=== PATIENT | male | born 1955 | race Caucasian/White ===

== ENCOUNTER → 2019-07-06 07:07 | Outpatient (CLI) | payer BC, SELFPAY ==
[2019-07-06 10:05] LABS: Alanine Aminotransferase 26 U/L (12-78); Albumin Level 3.9 gm/dL (3.4-5.0); Albumin/Globulin Ratio 1.3 (1.1-1.8); Alkaline Phosphatase 87 U/L (46-116); Aspartate Amino Transferase 15 U/L (15-37); Bilirubin,Total 0.7 mg/dL (0.2-1.0); Blood Urea Nitrogen 20 mg/dL (7-18); Calcium 8.4 mg/dL (8.5-10.1); Carbon Dioxide 29 mmol/L (21.0-32.0); Chloride 103 mmol/L (98-107); Chol/HDL Ratio 3.7 (1-3.5); Cholesterol 156 mg/dL (140-200); Creatinine,Serum 1.07 mg/dL (0.70-1.30); Estimated Glomerular Filt Rate 69 ml/min (>60); GFR (African American) 84 ML/MIN (>60); Globulin 3.1 gm/dl (1.3-3.2); Glucose 96 mg/dL (74-106); HDL Cholesterol 42 mg/dL (27-67); LDL Cholesterol 89 mg/dL (0-130); Prostate Specific Ag Screen 1.1 ng/mL (0.0-4.0); Sodium 141 mmol/L (136-145); Triglycerides 123 mg/dL (30-200); VLDL Cholesterol 25 mg/dL (0-40)
[2019-07-07 17:12] LABS: Vitamin D 25 Hydroxy 64.8 ng/mL (30.0-100.0)
== END ==
PROVIDERS: Visit Provider Family Medicine
DX: Z00.00 Encounter for general adult medical examination without abnormal findings (principal); Z12.5 Encounter for screening for malignant neoplasm of prostate; E55.9 Vitamin D deficiency, unspecified
CPT/HCPCS: 36415; 80053; 80061; 82652; G0103

== ENCOUNTER → 2020-04-09 08:06 | Outpatient (CLI) | payer BC, SELFPAY ==
[2020-04-09 09:44] LABS: Coronavirus 19 IgG Antibody Negative (Negative); Coronavirus 19 IgM Antibody Negative (Negative)
== END ==
PROVIDERS: Visit Provider Surgery
DX: Z01.818 Encounter for other preprocedural examination (principal)
CPT/HCPCS: 36415; 86328

== ENCOUNTER 2020-04-10 06:27 | Day surgery (SDC) | payer BC, SELFPAY ==
[2020-04-06 10:30] VITALS: BMI 29.0
[2020-04-10 06:44] VITALS: BP 130/77; PULSE 71; RESP 20; TEMP 37; O2SAT 95
--- NOTE | 2020-04-10 07:21 | P.PN_ITS ---
[facility] Anesthesia Checklist - Patient Identification Patient Identification: Arm Band, Verbal (Name & ) - Structural Data Admitted From: Home Planned Operative Procedure/s: Colonoscopy Consent for Planned Operative Procedure(s) Verified: Yes Verified Documents: Surgical Consent, History and Physical - NPO Status Verified Time NPO: 00:00 - Chart Verification Results Verified: None - Additional verifications Anesthesia Reactions: No - Airway Assessment C-Spine Mobility Assessed: Yes TMJ Mobility Assessed: Yes Dentition: Good Dentition (crowns) - Neurological Assessment Level of Consciousness: Awake, Alert, Appropriate, Follows Commands Hx Seizures: No Numbness or tingling in extremities: No - Anesthesia Plan Anesthesia Risk discussed: Yes Anesthesia Plan: Verified ASA Class: I Anesthesia Type: [facility] History I have reviewed the patient's past medical history: Yes Medical History: Denies:: Cancer, Diabetes Mellitus Type 1, Diabetes Mellitus Type 2, Internal Pacemaker, MRSA, Seizures *Have you ever received a pneumonia vaccine?: No *Have you received a flu vaccine this season?: Yes Anesthesia experience/problems:: None Other Surgeries: Yes: Colonoscopy. No: Pacemaker Amputation: No Fractures: No - *Social History Last grade of school completed: Some college Smoking Status: Never smoker Alcohol Intake: current Alcohol Intake Frequency:: a few times a month Substance Use Type: denies use *Occupational Status:: employed Housing: house Household Members: significant other *Travel in the last 8 weeks: None Family Hx:: No significant family history
[2020-04-10 07:27] VITALS: O2SAT 95
[2020-04-10 08:10] VITALS: BP 89/59; PULSE 69; RESP 16; TEMP 36.3; O2SAT 93
--- NOTE | 2020-04-10 08:11 | P.PCN_ITS ---
- Procedure: Date: 04/10/20 Procedure Performed:: Total colonoscopy to terminal ileum with polypectomy by snare and biopsy forceps Indications:: Patient is a 65-year-old male referred for follow-up screening colonoscopy. He is normally under the care of Dr. Cristopher Engel. He did have a colonoscopy about 20 years ago for rectal bleeding and was found to have some hemorrhoids. I performed colonoscopy on him in December 2009 at which time he had some early diverticulosis and minimal internal hemorrhoids. He does take fiber supplementation. Cologuard was suggested as a possibility for screening . He has no appreciable symptoms. Performing Provider:: Severiano Leiva MD Referring Provider:: Cristopher Engel MD Sedation:: Propofol Procedure:: Patient was taken to endoscopy procedure room. He was positioned in a lateral decubitus position. Adequate intravenous sedation was achieved with anesthesia titration of propofol. Digital examination was performed which was unremarka ble. Variable stiffness Olympus colonoscope was inserted via the anus and advanced to the cecum. Appendiceal orifice and ileocecal valve were clearly identified. Colonoscope was advanced a short distance into the terminal ileum which appeared grossly normal. Colonoscope was slowly withdrawn through the colon with careful surveillance. Small adenomatous polyps were encountered in the cecum in the periappendiceal location, transverse colon proximally, and descending colon. These were removed with cold cutting snare. Possible early polyp was encountered in the descending colon and removed with cold biopsy forceps and sent as descending polyp #2. There were moderate sigmoid diverticuli. Retroflexion within the rectum revealed no evidence of any pathologic internal hemorrhoids. Colonoscope was withdrawn. Findings:: Adenomatous polyps x3 Possible early descending colon polyp Sigmoid diverticulosis Recommendations:: Likely repeat colonoscopy 3 to 5 years pending the final pathology given the adenomatous polyps Complications:: None Estimated blood obtained (mL): 2
[2020-04-10 08:20] VITALS: BP 100/66; PULSE 68; RESP 16; TEMP 36.3; O2SAT 94
[2020-04-10 08:30] VITALS: BP 116/78; PULSE 63; RESP 18; TEMP 36.3; O2SAT 95
[2020-04-10 08:49] VITALS: BP 126/83; PULSE 62; RESP 18; TEMP 36.3; O2SAT 96
== END 2020-04-10 08:49 | disposition home or self-care (01) ==
LOC: OUTP 06:29
PROVIDERS: PCP Family Medicine; Visit Provider Surgery
PROC: 0DJD8ZZ Inspection of Lower Intestinal Tract, Via Natural or Artificial Opening Endoscopic (ICD-10-PCS; CPT 45385; principal; 2020-04-10 07:30)
DX: Z12.11 Encounter for screening for malignant neoplasm of colon (principal); K63.5 Polyp of colon; K57.30 Diverticulosis of large intestine without perforation or abscess without bleeding
CPT/HCPCS: 45385; 45380; J2704

== ENCOUNTER 2021-07-10 11:04 | Emergency (ER) | payer BC, SELFPAY ==
[2021-07-10 11:12] VITALS: BP 124/85; PULSE 66; RESP 21; TEMP 36.9; O2SAT 98; BMI 29.7
[2021-07-10 11:33] LABS: Apearance,Urine Clear (Clear); Bilirubin,Urine Negative (Negative); Blood, Urine Negative (Negative); Color,Urine Dark Yellow (Yellow); Glucose,Urine (UA) Negative (Negative); Ketones,Urine Negative (Negative); Protein,Urine Negative (Negative); UTC Leukocyte Esterase,Urine Negative (Negative); UTC Nitrate,Urine Negative (Negative); Urobilinogen,Urine 1 EU/dl (0.2)
--- NOTE | 2021-07-10 11:41 | HMH.EDUTC ---
[facility] Disposition Clinical Impression: Abdominal pain Qualifiers: Abdominal location: unspecified location Qualified Code(s): R10.9 - Unspecified abdominal pain Disposition: Still a Patient Condition on Discharge: Good Referrals: Cristopher Engel MD [Primary Care Provider] - Time of Disposition: 11:58 Medical Decision Making - Pa Inquiry Pt receiving controlled substance: No Pa was queried for this patient: No Vital Signs: 07/10/21 11:12 Temperature 98.4 F Temperature Source Oral Pulse Rate [Left] 66 Respiratory Rate 21 Blood Pressure [Right Arm] 124/85 Blood Pressure Mean [Right Arm] 98 02 Sat by Pulse Oximetry 98 - Lab Data Lab Results 07/10/21 11:22: Urine Color Dark yellow, Urine Appearance Clear, Urine pH 7.0, Ur Specific [place] 1.020, Urine Protein Negative, Urine Glucose (UA) Negative, Urine Ketones Negative, Urine Blood Negative, Urine Nitrate Negative, Urine Bilirubin Negative, Urine Urobilinogen 1, Ur Leukocyte Esterase Negative 07/10/21 11:30: Urine Color Yellow, Urine Appearance Clear, Urine pH 7.5, Ur Specific [place] 1.020, Urine Protein Negative, Urine Glucose (UA) Negative, Urine Ketones Negative, Urine Blood Negative, Urine Nitrate Negative, Urine Bilirubin Negative, Urine Urobilinogen 1.0, Ur Leukocyte Esterase Negative Orders (Tests/Meds): ORDERS Category Date Time Status Amylase Stat Lab 07/10/21 11:55 Received Complete Blood Count Auto Diff Stat Lab 07/10/21 11:55 Received Comprehensive Metabolic Panel Stat Lab 07/10/21 11:55 Received Lipase Stat Lab 07/10/21 11:55 Received UA [Urinalysis and Microscopic] Stat Lab 07/10/21 11:30 Results Medical Decision Narrative: Due to patient complaint discussed with patient and recommended transfer to the ED for further work up and evaluation and patient agreed Called ED spoke with Carole MOTLEY and reports given awaiting room assignment in the ED for transfer [facility] HPI - General Stated complaint: back pain & pain below the rib cage Time Seen by Provider: 07/10/21 11:47 Mode of Arrival: Ambulatory Source of Information: Patient Limitations: No Limitations Description of Symptoms (Recalled from Triage Doc. by RN): pt c/o RUQ pain that radiates into his back. pt states the pain is intermittant. he states the pain woke him up this morning at 0400. HEENT Symptoms (Recalled from RN notes): No Resp Symptoms (Recalled from RN notes): No Skin Symptoms (Recalled from RN notes): No MS Symptoms (Recalled from RN notes): No Functional Status (Recalled from RN notes): na - History of Present Illness Provider Complaint: Patient states that he has been having pain in his back on and off for a couple of weeks but he bowls and thought he may have pulled something and then it would go away States at around 4am he was awoke by pain in his right upper abdomen that was radiating into his back State that he thought it landen felt like gas or constipation so he took some mirlax states that he had a couple bowel movements after and still never helped with the pain so he came in States that pain has been intermittent over the last couple of weeks but today it is different - Related Data Home Medications Medication Instructions Recorded Confirmed tamsulosin 0.4 mg capsule 0.4 mg PO DAILY 03/23/20 05/07/20 Fluticasone Propionate [Flonase 1 spr NS BID 04/06/20 05/07/20 50mcg nasal spray 16gm] Aspirin [Aspirin 81mg EC Tab] 81 mg PO DAILY 04/10/20 05/07/20 Allergies Allergy/AdvReac Type Severity Reaction Status Date / Time Penicillins Allergy Intermediate I-RASH Verified 05/07/20 09:07 - Worker's Comp Is this a Worker's Comp case?: No [facility] History - Hepatitis A Screen Drug use history?: No High risk sexual behaviors?: No History of sexually transmitted infection?: No Currently employed?: No Childcare worker?: No Do you have indoor plumbing?: Yes Do you have electricity?: Yes Attestation statement:: This patient has been sc
[2021-07-10 12:15] LABS: Microscopic, Urine URINE MICROSCOPIC (MICROSCOPIC)
[2021-07-10 12:16] LABS: Basophils % 0.4 % (0.1-2.0); Eosinophils % 0.3 % (0.1-12.0); Hematocrit 48.5 % (42.0-52.0); Hemoglobin 16.4 g/dL (14.1-18.0); Lymphocytes % 13.6 % (10-50); Mean Corpuscular HGB Conc 33.9 g/dL (31.8-35.4); Mean Corpuscular Hemoglobin 31.5 pg (27.0-31.2); Mean Corpuscular Volume 92.9 fl (80-94); Mean Platelet Volume 8.6 fl (7.4-10.4); Monocytes # 0.4 K/mm3 (0.1-1.0); Monocytes % 5.3 % (1.7-9.3); Neutrophils # 5.7 K/mm3 (1.8-7.8); Neutrophils % 80.4 % (37.0-80.0); Platelet Count 145 K/mm3 (142-424); Red Blood Count 5.22 M/mm3 (4.60-6.20); Red Cell Distribution Width 13.3 % (11.5-17.5); White Blood Count 7.1 K/mm3 (4.8-10.8)
[2021-07-10 12:21] LABS: Appearance,Urine CLEAR (Clear); Bilirubin,Urine Negative (Negative); Blood, Urine Negative (Negative); Color,Urine YELLOW (Yellow); Glucose,Urine (UA) Negative (Negative); Ketones,Urine Negative (Negative); Leukocyte Esterase,Urine Negative (Negative); Nitrate,Urine Negative (Negative); PH,Urine 7.5 (5.0-8.5); Protein,Urine Negative (Negative)
[2021-07-10 12:35] VITALS: BP 139/94; PULSE 70; RESP 16; TEMP 36.9; O2SAT 98; BMI 29.7
--- NOTE | 2021-07-10 12:50 | US_ITS ---
PROCEDURE: US ABDOMEN LIMITED CLINICAL INDICATION: RUQ pain, concern for cholelithiasis COMPARISON: No exams were available for comparison FINDINGS: PANCREAS: Pancreas is not well delineated due to overlying bowel gas. . LIVER: No focal liver lesions demonstrated. Homogeneous echogenicity. No intrahepatic biliary ductal dilatation evident. There is appropriate direction of blood flow within a non dilated portal vein RIGHT KIDNEY: Unremarkable. Normal size and echogenicity. No hydronephrosis GALLBLADDER: There are gallstones present. No gallbladder wall thickening apparent. There is questionable minimal amount of pericholecystic fluid. Common bile duct is normal at 4 mm. IMPRESSION: Cholelithiasis with minimal pericholecystic fluid Dictated by: Gibran Tony MD 07/10/2021 19:08 Gibran Tony MD in [facility] 07/10/2021 19:08
[2021-07-10 13:12] LABS: Chloride 104 mmol/L (98-107)
[2021-07-10 13:13] LABS: Potassium 4.4 mmoL/L (3.5-5.1); Sodium 139 mmol/L (136-145)
[2021-07-10 13:15] LABS: Alanine Aminotransferase 278 U/L (12-78); Amylase 60 U/L (30-110); Anion Gap 14.4 mEq/L (5-15); Aspartate Amino Transferase 567 U/L (17-59); Blood Urea Nitrogen 14 mg/dl (9-20); Carbon Dioxide 25 mmol/L (22.0-30.0); Creatinine Clearance Estimated 103 mL/min (50-200); Estimated Glomerular Filt Rate 96 ml/min (>60); GFR (African American) 117 ML/MIN (>60)
[2021-07-10 13:16] LABS: Albumin Level 4.2 g/dl (3.5-5.0); Albumin/Globulin Ratio 1.3 (1.1-1.8); Alkaline Phosphatase 99 U/L (38-126); Bilirubin,Total 2.2 mg/dl (0.2-1.3); Calcium 9.2 mg/dl (8.4-10.2); Globulin 3.2 g/dL (1.3-3.2); Glucose 114 mg/dl (74-100); Lipase 100 U/L (23-300); Total Protein,Serum 7.4 g/dl (6.3-8.2)
[2021-07-10 14:05] VITALS: BP 135/65; PULSE 78; RESP 16; O2SAT 94
--- NOTE | 2021-07-10 14:41 | PC.NURSE ---
per dr. woodward pt is to be NPO after midnight tonight, pt needs to have a CBC, CMP done as an outpatient early tomorrow morning. Pt needs to stay in house until lab work results. BJ states she will call pt when labs result to give pt further instructions. Pt is tentatively scheduled to have his gallbladder removed on thursday at this time unless lab work tomorrow is worse per Dr. Woodward. information relayed to OZZIE HUNT
--- NOTE | 2021-07-10 15:00 | HMH.EDABDPAI ---
ED Disposition Clinical Impression: Abdominal pain Qualifiers: Abdominal location: unspecified location Qualified Code(s): R10.9 - Unspecified abdominal pain Disposition: Still a Patient Condition on Discharge: Good Additional Instructions: Your evaluated in the emergency department today for abdominal pain, and found to have symptomatic gallstones. If your pain significantly worsens or you develop severe nausea vomiting return to the emergency department without hesitation. Otherwise, follow-up tomorrow morning at ED registration to obtain outpatient laboratory assessment, with further plan from the emergency general surgery team following these labs. Do not eat after midnight in case of need for operation tomorrow. Use prescription of Paauilo as needed for pain control tonight. Prescriptions: Hydrocod/Acet 5/325 mg [Paauilo 5/325mg tablet] 1 tab PO Q4HP PRN 2 Days #6 tab PRN Reason: Breakthru Severe Pain Transmission Status: Sent to [facility] #[id number] Referrals: Cristopher Engel MD [Primary Care Provider] - - Critical Care Critical Care Time: No Attestation: On 07/10/21, the high probability of a clinically significant, sudden or life threatening deterioration of the following system(s) required my full and direct attention, intervention and personal management. The time I documented below is in addition to time spent performing reported procedures but includes the following listed in this critical care notation. Medical Decision Making - Pa Inquiry Pt receiving controlled substance: No Vital Signs: 07/10/21 11:12 07/10/21 12:35 Temperature 98.4 F 98.4 F Temperature Source Oral Oral Pulse Rate [Left] 66 70 Respiratory Rate 21 16 Blood Pressure [Right Arm] 124/85 139/94 H Blood Pressure Mean [Right Arm] 98 109 Blood Pressure Position [Right Arm] Sitting 02 Sat by Pulse Oximetry 98 98 Oxygen Delivery Method Room Air - Lab Data Lab Results 07/10/21 11:22: Urine Color Dark yellow, Urine Appearance Clear, Urine pH 7.0, Ur Specific [place] 1.020, Urine Protein Negative, Urine Glucose (UA) Negative, Urine Ketones Negative, Urine Blood Negative, Urine Nitrate Negative, Urine Bilirubin Negative, Urine Urobilinogen 1, Ur Leukocyte Esterase Negative 07/10/21 11:30: Urine Color Yellow, Urine Appearance Clear, Urine pH 7.5, Ur Specific [place] 1.020, Urine Protein Negative, Urine Glucose (UA) Negative, Urine Ketones Negative, Urine Blood Negative, Urine Nitrate Negative, Urine Bilirubin Negative, Urine Urobilinogen 1.0, Ur Leukocyte Esterase Negative, Ur Squamous Epith Cells 3-5 07/10/21 11:55: WBC 7.1, RBC 5.22, Hgb 16.4, Hct 48.5, MCV 92.9, MCH 31.5 H, MCHC 33.9, RDW 13.3, Plt Count 145, MPV 8.6, Neut % (Auto) 80.4 H, Lymph % (Auto) 13.6, [place] % (Auto) 5.3, Eos % (Auto) 0.3, Baso % (Auto) 0.4, Neut # (Auto) 5.7, Lymph # (Auto) 1.0, [place] # (Auto) 0.4, Eos # (Auto) 0.0, Baso # (Auto) 0.0 07/10/21 11:55: Sodium 139, Potassium 4.4, Chloride 104, Carbon Dioxide 25, Anion Gap 14.4, BUN 14, Creatinine 0.80, Estimated Creat Clear 103, Estimated GFR 96, Est GFR ( Amer) 117, Glucose 114 H, Calcium 9.2, Total Bilirubin 2.2 H, AST 567 H*, ALT 278 H, Alkaline Phosphatase 99, Total Protein 7.4, Albumin 4.2, Globulin 3.2, Albumin/Globulin Ratio 1.3, Amylase 60, Lipase 100 Result diagrams: 07/10/21 11:55 07/10/21 11:55 Orders (Tests/Meds): ED MEDICATIONS Discontinued Medications Generic Name Dose Route Start Last Admin Trade Name Freq PRN Reason Stop Dose Admin Belladonna Alkaloids 60 ml 07/10/21 12:51 07/10/21 12:57 Gi Cocktail 60ml Udc PO 07/10/21 12:52 60 ml ONCE ONE Administration Famotidine 20 mg 07/10/21 12:51 07/10/21 12:57 Famotidine 20mg Tablet PO 07/10/21 12:52 20 mg ONCE ONE Administration ORDERS Category Date Time Status US abdomen limited Stat Exams 07/10/21 12:50 Taken Medical Decision Narrative: In summary, the patient is a 66-year-old mal
--- NOTE | 2021-07-10 15:13 | PC.NURSE ---
PT STATES FEELING IMPROVED AFTER MEDS
[2021-07-10 15:18] VITALS: BP 142/74; PULSE 72; RESP 16; TEMP 36.6; O2SAT 98
== END 2021-07-10 15:19 | disposition still patient (30) ==
LOC: UTC 11:07 → ER 11:48 → UTC 11:48 → ER 12:21
PROVIDERS: Nurse Practitioner; Emergency Provider Student in an Organized Health Care Education/Training Program; PCP Family Medicine
DX: R10.11 Right upper quadrant pain (principal); R11.0 Nausea; Z88.0 Allergy status to penicillin
CPT/HCPCS: 76705; 80053; 81001; 81003; 82150; 83690; 85025; 99283

== ENCOUNTER → 2021-07-11 07:28 | Outpatient (CLI) | payer BC, SELFPAY ==
[2021-07-11 07:48] LABS: Basophils % 0.7 % (0.1-2.0); Eosinophils # 0.1 K/mm3 (0.0-0.4); Eosinophils % 1.6 % (0.1-12.0); Hematocrit 48.3 % (42.0-52.0); Hemoglobin 15.8 g/dL (14.1-18.0); Lymphocytes # 1.2 K/mm3 (0.7-4.5); Lymphocytes % 19.1 % (10-50); Mean Corpuscular HGB Conc 32.7 g/dL (31.8-35.4); Mean Corpuscular Hemoglobin 30.7 pg (27.0-31.2); Mean Corpuscular Volume 93.9 fl (80-94); Mean Platelet Volume 8.6 fl (7.4-10.4); Monocytes # 0.4 K/mm3 (0.1-1.0); Monocytes % 6.9 % (1.7-9.3); Neutrophils # 4.4 K/mm3 (1.8-7.8); Neutrophils % 71.7 % (37.0-80.0); Platelet Count 141 K/mm3 (142-424); Red Blood Count 5.15 M/mm3 (4.60-6.20); Red Cell Distribution Width 13.3 % (11.5-17.5); White Blood Count 6.1 K/mm3 (4.8-10.8)
[2021-07-11 07:51] LABS: Chloride 103 mmol/L (98-107); Potassium 4.8 mmoL/L (3.5-5.1); Sodium 140 mmol/L (136-145)
[2021-07-11 07:54] LABS: Alanine Aminotransferase 360 U/L (12-78); Albumin Level 4.3 g/dl (3.5-5.0); Albumin/Globulin Ratio 1.6 (1.1-1.8); Alkaline Phosphatase 121 U/L (38-126); Anion Gap 11.8 mEq/L (5-15); Aspartate Amino Transferase 271 U/L (17-59); Bilirubin,Total 2.9 mg/dl (0.2-1.3); Blood Urea Nitrogen 13 mg/dl (9-20); Carbon Dioxide 30 mmol/L (22.0-30.0); Estimated Glomerular Filt Rate 75 ml/min (>60); GFR (African American) 90 ML/MIN (>60); Globulin 2.7 g/dL (1.3-3.2)
[2021-07-11 07:55] LABS: Calcium 8.8 mg/dl (8.4-10.2); Glucose 103 mg/dl (74-100)
== END ==
PROVIDERS: Visit Provider Surgery
DX: R10.9 Unspecified abdominal pain (principal); Z01.812 Encounter for preprocedural laboratory examination; Z11.52 Encounter for screening for COVID-19
CPT/HCPCS: 36415; 80053; 85025; C9803; U0003; U0005

== ENCOUNTER 2021-07-12 10:02 | Day surgery (SDC) | payer BC, SELFPAY ==
[2021-07-12] VITALS (12 sets, daily range): BP systolic 119–168; BP diastolic 58–97; PULSE 84–95; RESP 18; TEMP 36.1–43; O2SAT 92–96; BMI 29.0
--- NOTE | 2021-07-12 10:48 | P.PN_ITS ---
[facility] Anesthesia Checklist - Structural Data Admitted From: Home Planned Operative Procedure/s: ny medinae Consent for Planned Operative Procedure(s) Verified: Yes - Additional verifications Anesthesia Reactions: No Hx Blood Transfusions: No Blood Transfusion Reaction: No - Airway Assessment C-Spine Mobility Assessed: Yes TMJ Mobility Assessed: Yes Dentition: Good Dentition - Neurological Assessment Level of Consciousness: Awake, Alert, Appropriate - Anesthesia Plan Anesthesia Risk discussed: Yes Anesthesia Plan: Verified ASA Class: II Anesthesia Type: General [facility] History I have reviewed the patient's past medical history: Yes Medical History: Denies:: Cancer, Diabetes Mellitus Type 1, Diabetes Mellitus Type 2, Internal Pacemaker, MRSA, Seizures *Have you ever received a pneumonia vaccine?: No *Have you received a flu vaccine this season?: No Other Medical History: Denies: Blood Transfusion Reaction Anesthesia experience/problems:: none Other Surgeries: Yes: Colonoscopy. No: Pacemaker Amputation: No Fractures: Yes (lt foot) - *Social History Last grade of school completed: Some college Smoking Status: Never smoker Alcohol Intake: current Alcohol Intake Frequency:: holidays/special occasions only Substance Use Type: denies use *Occupational Status:: employed Housing: house Household Members: spouse *Travel in the last 8 weeks: None Family Hx:: Cancer, Diabetes
--- NOTE | 2021-07-12 12:21 | HMH.OPNOTE ---
Date of procedure: 07/12/21 Pre-op Diagnosis:: Calculus cholecystitis Hyperbilirubinemia Post-op Diagnosis:: Same Procedure performed:: Laparoscopic cholecystectomy Liver biopsy Surgeon:: Saurabh Woodward MD Tubing Mill Setter(s):: Nguyễn BUSINESS CONSULTANT:: Aby Quiñonez Anesthesia: GETAidan Estimated blood loss (mL): 15 Clinical Note:: This is a 66-year-old gentleman who was recently evaluated in the emergency department for upper abdominal pain. Evaluation revealed elevated bilirubin and elevated transaminases. Radiographic evidence of enlarged gallbladder and gallstones noted. Common bile duct noted to be normal. Operative findings:: Acutely inflamed gallbladder with distention he has some Liver parenchyma impaired relatively normal Cholangiogram not attempted secondary to infundibular inflammatory changes Operative note:: After informed consent was obtained, the patient was taken to the operating room and placed in the supine position. General anesthesia was induced and the abdomen was prepped and draped in a sterile fashion. After infiltration with local anesthetic an infraumbilical incision was made. A Veress needle was placed in position. The abdomen was insufflated. A 5 mm optical trocar was placed in position. Under direct visualization, a 12 mm trocar was placed in the subxiphoid position and 2 additional 5 mm trocars were placed in the right upper quadrant. The gallbladder was notably distended and acutely inflamed. A small otomy was made in the dome of the gallbladder utilizing harmonic branden. Bilious fluid was evacuated. The gallbladder was then elevated up and over the liver margin. Significant inflammatory changes and tissue thickening noted throughout the infundibulum. The decision was made to forego cholangiogram. The tissue around the cystic duct was carefully dissected. 3 clips were placed proximally and the duct was transected with harmonic branden. 2 clips were placed on the cystic artery and it was transected in a similar manner. Harmonic branden were then utilized to dissect the gallbladder away from the liver margin. Along the dome of the gallbladder a portion of hepatic tissue was included within the dissection. The gallbladder with attached liver biopsy was placed in a retrieval bag and removed through the subxiphoid trocar site. The right upper quadrant was thoroughly irrigated. No active bleeding or bile leak was noted. Fascia at the subxiphoid trocar site was reapproximated utilizing the NeoClose device. The remaining trocars were removed. All wounds were irrigated and skin was closed with 4-0 Monocryl in a subcuticular fashion. Steri-Strips were applied. The patient's anesthetic agents were reversed and extubation was completed prior to transfer to recovery in stable condition. Condition: stable Disposition: PACU Specimens:: Gallbladder with attached liver biopsy Complications:: No immediate
--- NOTE | 2021-07-12 12:37 | P.PN_ITS ---
[facility] Anesthesia Record Part I Intake, IV Amount: 1,000 Estimated blood loss (mL): 15 Urine output (mL): 0 Blood Pressure: 168/97 SaO2: 94 Pulse Rate: 95 Respiratory Rate: 18 Temperature: 98.5 F Patient is:: Awake
--- NOTE | 2021-07-15 08:41 | HMH.ANESII ---
[facility] Anesthesia Record Part II Discharge Time: 13:07 Destination: Surgical Day Care (OP Surgery) PACU nurse assessment reviewed?: Yes Patient Condition:: Good Anesthesia Complications:: None Swallowing reflex intact?: Yes Cyanosis?: No Blood Pressure: 138/84 Pulse Rate: 84 Temperature: 97 F Mental Status: Alert & Oriented Pain level:: 6 Nausea and/or vomitting:: None Intake, IV Amount: 0
[2021-07-15 08:42] VITALS: BP 138/84; PULSE 84; TEMP 36.1
== END 2021-07-12 14:15 | disposition home or self-care (01) ==
LOC: OR 10:03
PROVIDERS: PCP Family Medicine; Visit Provider Surgery
PROC: 0FT44ZZ Resection of Gallbladder, Percutaneous Endoscopic Approach (ICD-10-PCS; CPT 47562; principal; 2021-07-12 11:30)
DX: K80.10 Calculus of gallbladder with chronic cholecystitis without obstruction (principal); K82.8 Other specified diseases of gallbladder; Z80.9 Family history of malignant neoplasm, unspecified; Z83.3 Family history of diabetes mellitus; Z88.0 Allergy status to penicillin; N40.0 Benign prostatic hyperplasia without lower urinary tract symptoms; Z79.82 Long term (current) use of aspirin; Z79.899 Other long term (current) drug therapy
CPT/HCPCS: 47562; 47001; 96374; J2710

== ENCOUNTER → 2021-07-17 14:26 | Outpatient (CLI) | payer BC, SELFPAY ==
[2021-07-17 14:54] LABS: Alanine Aminotransferase 80 U/L (12-78); Albumin Level 4.3 g/dl (3.5-5.0); Albumin/Globulin Ratio 1.3 (1.1-1.8); Alkaline Phosphatase 87 U/L (38-126); Anion Gap 13.6 mEq/L (5-15); Aspartate Amino Transferase 43 U/L (17-59); Basophils # 0.1 K/mm3 (0-0.2); Basophils % 1.1 % (0.1-2.0); Blood Urea Nitrogen 18 mg/dl (9-20); Calcium 9.2 mg/dl (8.4-10.2); Carbon Dioxide 30 mmol/L (22.0-30.0); Chloride 103 mmol/L (98-107); Eosinophils # 0.1 K/mm3 (0.0-0.4); Eosinophils % 2.2 % (0.1-12.0); Estimated Glomerular Filt Rate 75 ml/min (>60); GFR (African American) 90 ML/MIN (>60); Globulin 3.2 g/dL (1.3-3.2); Glucose 101 mg/dl (74-100); Hematocrit 48.5 % (42.0-52.0); Hemoglobin 16.3 g/dL (14.1-18.0); Lymphocytes # 1.9 K/mm3 (0.7-4.5); Lymphocytes % 29.5 % (10-50); Mean Corpuscular HGB Conc 33.7 g/dL (31.8-35.4); Mean Corpuscular Hemoglobin 31.3 pg (27.0-31.2); Mean Platelet Volume 8.4 fl (7.4-10.4); Monocytes # 0.5 K/mm3 (0.1-1.0); Monocytes % 7.3 % (1.7-9.3); Neutrophils # 3.9 K/mm3 (1.8-7.8); Neutrophils % 59.8 % (37.0-80.0); Platelet Count 175 K/mm3 (142-424); Potassium 4.6 mmoL/L (3.5-5.1); Red Blood Count 5.21 M/mm3 (4.60-6.20); Red Cell Distribution Width 13.7 % (11.5-17.5); Sodium 142 mmol/L (136-145); Total Protein,Serum 7.5 g/dl (6.3-8.2); White Blood Count 6.5 K/mm3 (4.8-10.8)
== END ==
PROVIDERS: Visit Provider Surgery
DX: Z90.49 Acquired absence of other specified parts of digestive tract (principal)
CPT/HCPCS: 36415; 80053; 85025

== ENCOUNTER → 2022-12-31 14:31 | Outpatient (CLI) | payer MEDICARE, SELFPAY ==
--- NOTE | 2022-12-31 14:40 | XR_ITS ---
FINAL REPORT CLINICAL HISTORY: left sided back pain no known injury COMPARISON: None FINDINGS: THORACIC SPINE Three views of the thoracic spine were obtained. There is no fracture present. There is no malalignment. There is mild and moderate degenerative change with osteophyte formation. LUMBAR SPINE Three views the lumbar spine were obtained. There is no fracture present. There is mild leftward curvature of the lumbar spine. There is mild degenerative change. IMPRESSION: Degenerative changes with no acute process. Reviewed, Interpreted and Dictated by Severiano Lozano III, MD Transcribed by Becca Butt Authenticated and [facility]
== END ==
PROVIDERS: PCP Family Medicine; Visit Provider Family Medicine
DX: R10.9 Unspecified abdominal pain (principal)
CPT/HCPCS: 72084

== ENCOUNTER → 2023-01-19 08:49 | Outpatient (CLI) | payer MEDICARE, SELFPAY ==
--- NOTE | 2023-01-19 08:54 | US_ITS ---
FINAL REPORT TECHNIQUE: Ultrasound images of the kidneys and bladder were obtained. CLINICAL HISTORY: LEFT FLANK PAIN FINDINGS: The right kidney measures 13 cm in length. It is normal in echogenicity. There is no hydronephrosis. The left kidney measures 12 cm in length. It is normal in echogenicity. There is no hydronephrosis. There is a subcentimeter cyst. IMPRESSION: No hydronephrosis. Reviewed, Interpreted and Dictated by Osmani Piper MD Transcribed by Kaitlin Gongora Authenticated and [facility]
--- NOTE | 2023-01-19 08:54 | XR_ITS ---
FINAL REPORT CLINICAL HISTORY: Postmenopausal FINDINGS: Using L1-4, the bone mineral density of the spine is 1.001 g/cm2, corresponding to T-score of -0.8. Using the left hip, the bone mineral density of the femoral neck is 0.8 46 g/cm2, corresponding to a T-score of -0.6. Using the right hip: The bone mineral density of the femoral neck is 1.071 g/cm2, corresponding to a T-score of 1.0. IMPRESSION: Normal bone mineral density of the lumbar spine and hips. NOTE: T-score: Standard deviation compared with peak bone mass of young adult mean. *Following the recommendations of the International Society of Bone densitometry, classification of hip BMD is based on the lower of two T-scores; total hip or femoral neck. Reviewed, Interpreted and Dictated by Osmani Piper MD Transcribed by Kaitlin Gongora Authenticated and [facility]
== END ==
PROVIDERS: PCP Family Medicine; Visit Provider Family Medicine
DX: R10.9 Unspecified abdominal pain (principal); M81.0 Age-related osteoporosis without current pathological fracture
CPT/HCPCS: 76770; 77080

== ENCOUNTER 2023-11-09 12:18 | Outpatient (CLI) | payer MEDICARE, SELFPAY ==
--- NOTE | 2023-11-09 12:22 | XR_ITS ---
FINAL REPORT CLINICAL HISTORY: Right knee pain x 1 week COMPARISON: None FINDINGS: 3 views of the right knee were obtained. There is no acute fracture or dislocation. The joint spaces are intact. There is no soft tissue abnormality. IMPRESSION: No acute fracture Reviewed, Interpreted and Dictated by Osmani Piper MD Transcribed by Becca Butt Authenticated and [facility]
== END 2023-11-09 23:59 ==
PROVIDERS: PCP Family Medicine; Visit Provider Orthopaedic Surgery
DX: M25.561 Pain in right knee (principal)
CPT/HCPCS: 73562

== ENCOUNTER 2024-04-12 11:03 | Outpatient (CLI) | payer MEDICARE, SELFPAY ==
--- NOTE | 2024-04-12 | CA_ITS ---
FINAL REPORT TECHNIQUE: Compression maldonado scale and Doppler evaluation CLINICAL HISTORY: right thigh pain x 1 week, varicosities COMPARISON: None FINDINGS: Femoral and popliteal veins show normal compressibility and flow. Visualized portion of the calf veins are patent by Doppler exam. IMPRESSION: No evidence of right lower extremity deep venous thrombosis Reviewed, Interpreted and Dictated by Avlin Calle MD Transcribed by Becca Butt Authenticated and [facility]
== END 2024-04-12 23:59 | disposition home or self-care (01) ==
LOC: RT 11:03
PROVIDERS: PCP Family Medicine; Visit Provider Family Medicine
DX: M79.651 Pain in right thigh (principal)
CPT/HCPCS: 93971

== ENCOUNTER 2024-09-06 12:11 | Outpatient (CLI) | payer MEDICARE, SELFPAY ==
--- NOTE | 2024-09-06 12:18 | XR_ITS ---
FINAL REPORT TECHNIQUE: 5 views CLINICAL HISTORY: LUMBARGO W/SCIATICA RT SIDE/LEFT SIDE COMPARISON: None FINDINGS: There is no fracture present. There is no malalignment. There is mild diffuse degenerative disc disease with mild lower facet arthropathy. IMPRESSION: Mild diffuse degenerative change of the lumbar spine. Reviewed, Interpreted and Dictated by Alvin Calle MD Transcribed by Hoda Buchanan Authenticated and [facility]
== END 2024-09-06 23:59 | disposition home or self-care (01) ==
LOC: RAD 12:14
PROVIDERS: PCP Family Medicine; Visit Provider Family Medicine
DX: M54.41 Lumbago with sciatica, right side (principal); M54.42 Lumbago with sciatica, left side
CPT/HCPCS: 72110

== ENCOUNTER 2024-09-15 13:00 | Outpatient (RCR) | payer MEDICARE, SELFPAY ==
--- NOTE | 2024-08-29 14:10 | HMH.PTOPEV ---
PT Outpatient Evaluation Rehab PT Outpatient Evaluation Start: 08/29/24 12:21 Freq: Status: Active Protocol: Document 08/29/24 12:21 TIERRA (Rec: 08/29/24 12:36 TIERRA [id number]) E-signed By Randy Mclaughlin, PT Outpatient Therapy Subjective History Subjective History The patient is a 69 yom who is referred to [facility] outpatient Physical Therapy with complaints of BL Low back and hip pain. The pt reports that this pain seemed to begin in July after he received his vaccines for the year. He reports that he does not remember a particular event that caused it to begin hurting. He reports that he occasionally also has a pain that goes into his left calf. The patient has been seeing his PCP and a chiropractor for this issue. He was prescribed gabapentin, which he reports has not helped much. He does report that the chiropractor seems to help temporarily. 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 New diagnosis of cancer in past 12 No months? Chief Complaint Pain,Stiff Symptom Type Sharp Symptoms Relieved By Rest/Positioning,Heat Symptoms Aggravated By Standing,Bending/Stooping, Twisting Prior Functional Limitations None Current Functional Limitations Lifting,Housework,Sleeping, Standing,Squatting,Stairs, Bending/Stooping Symptom Description Intermittent Level of pain today (0-10) 7 Pain scale - at its best (0-10) 8 Pain scale - at its worst (0-10) 0 Lumbopelvic Eval Posture Thoracic Spine Posture Standing Position Increased Kyphosis Lumbar Spine Posture Standing Position Flattened Assistive device Assistive Devices None / NA Gait Observation General Gait Pattern Observation Antalgic Gait,Hips Posterior to LUIS Palapation tenderness bilateral lumbar spinal tenderness Yes: 2/4 to L4-S1 Accessory Movement L4 bilateral L5 bilateral S1 bilateral Range of Motion Lumbar Spine Active Flexion Range of 100% Motion (degrees) Lumbar Spine Active Extension Range of 25% Motion (degrees) Left Lumbar Spine Lateral Flexion Active 50% Range of Motion (degrees) Right Lumbar Spine Lateral Flexion 50% Active Range of Motion (degrees) Lumbar Spine ROM Limitations Soft Tissue Tightness,Pain Manual Muscle Test Bilateral Knee Extension Strength Grade 5 Normal Knee Flexion Strength Grade 5 Normal Hip Flexion Strength Grade 5 Normal Hip Abduction Strength Grade 5 Normal Hip Extension Strength Grade 5 Normal DTR Rt Patellar 2+ Lt Patellar 2+ Rt Gastroc/Soleus 2+ Lt Gastroc/Soleus 2+ Altered Sensation Bilateral Comment Intact Special Tests Hip Juan Carlos Test Negative Left,Negative Right Sciatic Nerve Tension Test Negative Left,Negative Right Bilateral Straight Leg Raise Test Negative Crossed Straight Leg Raise Test Negative Left,Negative Right Ahmet Test Positive Hip Shey's Test Positive Left,Positive Right Sacroiliac Joint Compression Test Negative Left,Negative Right Sacroiliac Joint Distraction Test Negative Left,Negative Right Oswestry Index Section 1 Pain Intensity The pain comes and goes and is severe Section 2 Personal Care (Washing,Dresing) increase the pain, but I manage not to change my way of doing it Section 3 Lifting Pain prevents me from lifting weights off the floor Section 4 Walking I have some pain when walking but it does not increase with distance Section 5 Sitting Pain prevents me from sitting for more than one hour Section 6 Standing I cannot stand more than 1/2 hour without increasing pain Section 7 Sleeping I get pain in bed, but it does not prevent me from sleeping well Section 8 Social Life My social life is normal but increases the degree of pain Section 9 Traveling I get extra pain while traveling, but it does not compel me to seek al Section 10 Changing Degreee of Pain My pain is neither getting better or worse Score and Risk Level Oswestry Sc 21 Oswestry Risk Level Moderate Disability Outpatient Therapy Assessment Impairments Problems/Impairmments Palpation Tenderness,Impaired Range of Motion,Impaired Gait Pattern,Impaired Walking, Impaired Household Care, Impaired Bending,Impaired Recreational Activities, Subjective C/O Pain Prognosis Rehab Potential Good Comment Pt demonstrates hypomobility in his lumbar spine, tight hip flexors and impaired lumbar extension. Skilled PT is indicated for this pt to promote a return to his PLOF and to address his current impairments. Clinical Impression Consistent with Diagnosis Yes Short Term Goals Number of Weeks 4 Decreased Palpation Tenderness Yes: 1/4 to Lumbar Spine Increase Range of Motion Yes: 75% to lumbar spine Improve Gait Pattern without Assistive Yes: Normalized gait Device Improve Ability to Bend Yes: 4/10 pain Return to Recreational Activities Yes: Bowling with only 3/10 pain Improve Oswestry Score Yes: Mild Disability Decrease Subjective C/O Pain Yes: 4/10 at worst Patient to be Ind w/ HEP Yes Custodial Goals Number of Weeks 8 Decreased Palpation Tenderness Yes: 0/4 Increase Range of Motion Yes: 100% Improve Ability to Bend Yes: 0/10 Return to Recreational Activities Yes: Bowling 0/10 pain Improve Oswestry Score Yes Decrease Subjective C/O Pain Yes: 2/10 at worst Patient to be Ind w/ Advanced HEP Yes Outpatient Therapy Plan of Care Treatment Plan May Include Therapeutic Exercise Including Home Yes Exercise Program Manual Therapy Techniques Yes Neuromuscular Re-education Yes Therapeutic Activities to Return to Yes Previous Functional/Work Level Gait Training Yes ADL/Self Care Education Yes Mechanical Traction Yes Dry Needling Yes Thermal Modalities Yes Electrical Stimulation Yes Massage Yes Manual Lymphatic Drainage Yes Frequency Times per week 2 Duration Number of Weeks 8 Addendums This patient is a candidate for social No or vocational rehab? Patient/Guardian verbally acknowledges Yes understanding of treatment program and consents to further treatment? Patient/Guardian verbally acknowledges Yes understanding of diagnosis, prognosis and goals for treatment? Eval Complexity PT Charges 08313 - Moderate Complexity Shoulder/Elbow Eval Shoulder Objective Measurements Elbow Objective Measurements PHYSICIAN CERTIFICATION: I certify the specified therapy services for Matthew Mccracken are required, authorized, and reviewed every 30 days.
== END 2024-09-15 23:59 | disposition home or self-care (01) ==
LOC: PT 13:00
PROVIDERS: Visit Provider Family Medicine
DX: M54.50 Low back pain, unspecified (principal)
CPT/HCPCS: 97010; 97014; 97110; 97140; 97163; 97530; G0283

== ENCOUNTER 2024-10-13 08:46 | Outpatient (CLI) | payer MEDICARE, SELFPAY ==
--- NOTE | 2024-10-13 08:49 | MR_ITS ---
FINAL REPORT CLINICAL HISTORY: LUMBARGO/LUMBAR DISC DISEASE lower back pain with bilateral leg pain, numbness and tingling COMPARISON: None FINDINGS: Multiplanar MR imaging of the lumbar spine was performed without contrast. On the sagittal T2-weighted images, there is abnormal decreased signal throughout the lumbar discs. The vertebrae are of normal height. The vertebral alignment is normal. L1-2: There is no significant canal stenosis or neural foraminal narrowing. L2-3: A mild annular bulge is present, with mild facet hypertrophy and mild bilateral neural foraminal narrowing. L3-4: A large broad-based midline disc protrusion is present with moderate facet hypertrophy, and a 6 mm fluid signal focus projecting anteriorly from the right L3-4 facet, likely a synovial cyst. There is severe canal stenosis at this level, best seen on images #17 and 18 of series 5. There is moderate left and moderate to severe right neural foraminal narrowing. L4-5: There is no significant canal stenosis or neural foraminal narrowing. L5-S1: There is no significant canal stenosis or neural foraminal narrowing. IMPRESSION: L3-4 severe canal stenosis, with a synovial cyst projecting anteriorly from the right L3-4 facet, producing moderate left and moderate to severe right neural foraminal narrowing. Reviewed, Interpreted and Dictated by Osmani Piper MD Transcribed by Hoda Buchanan Authenticated and [facility]
== END 2024-10-13 23:59 | disposition home or self-care (01) ==
LOC: RAD 08:47
PROVIDERS: PCP Family Medicine; Visit Provider Family Medicine
DX: M54.41 Lumbago with sciatica, right side (principal); M54.42 Lumbago with sciatica, left side; M51.9 Unspecified thoracic, thoracolumbar and lumbosacral intervertebral disc disorder
CPT/HCPCS: 72148

== ENCOUNTER 2024-10-21 13:00 | Outpatient (RCR) | payer MEDICARE, SELFPAY ==
--- NOTE | 2024-09-30 15:05 | HMH.RHREAS ---
Rehab Reassessment Rehab OP Re-assessment Start: 09/22/24 15:12 Freq: Status: Active Protocol: Document 09/30/24 13:11 TIERRA (Rec: 09/30/24 15:05 TIERRA [id number]) E-signed By Randy Mclaughlin, PT Oswestry Index Section 1 Pain Intensity The pain comes and goes and is severe Section 2 Personal Care (Washing,Dresing) my way of washing or dressing even though it causes some pain Section 3 Lifting lifting heavy weights off the floor, but I can manage if they are Section 4 Walking I have no pain when walking Section 5 Sitting I can sit in my favorite chair for as long as I like Section 6 Standing I cannot stand more than 1/2 hour without increasing pain Section 7 Sleeping I get pain in bed, but it does not prevent me from sleeping well Section 8 Social Life Pain has no significant effect on my social life apart from limiting Section 9 Traveling I get some pain when traveling , but none of my usual forms of travel m Section 10 Changing Degreee of Pain My pain seems to be getting better, but improvement is slow Score and Risk Level Oswestry Sc 18 Oswestry Risk Level Moderate Disability Rehab Re-assessment Subjective Subjective Pt reports that he has mode some progress but he continues to have episodes of severe pain which seem unexplainable. He reports that bending and returning to standing from a bent position continue to be difficult and result in a severe pain into his buttock on both sides. He reports that he also has pain when he rolls over in bed. He reports that he was able to shovel snow his driveway this morning and had a few episodes of pain but he was able to get it completed. He reports that he has been able to bowl but has had to change his mechanics and still has some pain. He reports that his pain is a 6/ 10 at worst and he reports a 4 /10 pain with bending. Objective Objective Notes BECKIE: 18 (21 on IE) TTP: 1/4 to L3-S1 Segmental Hypomobility at L3- S1 ROM: 100% in all Lumbar ROM, however pain with lumbar extension. Gait: Normalized Gait Comparable sign reproduced with initiating extension from a flexed position, also reproduced with lower legs in supine from an elevated position. Assessment Progress Assessment Progressing as Expected Assessment Notes Pt has made some progress thus far in ROM, TTP and pain. However, he continues to present below baseline in strength, pain and functional mobility. The pt's signs and symptoms may be more consistent with a PT diagnosis of lumbar stenosis, given the comparable sign of pain with leg lowering and initiating lumbar extension from a flexed position. The pt would benefit further from skilled PT with a focus on improving lumbopelvic motor control. Patient goals met ST, 2,3 [address] Met ST-7 LTG 1-7 Plan Plan Continue as per initial POC with an increased focus on lumbopelvic motor control. Frequency of Therapy 2 Duration of therapy 4 Time and Billing Re-Eval Time 8 Re-Eval Billing Units 0 Charge for PT reassessment? No PHYSICIAN CERTIFICATION: I certify the specified therapy services for Matthew Mccracken are required, authorized, and reviewed every 30 days.
== END 2024-10-21 23:59 | disposition home or self-care (01) ==
LOC: PT 13:00
PROVIDERS: Visit Provider Family Medicine
DX: M54.50 Low back pain, unspecified (principal)
CPT/HCPCS: 97014; 97110; 97530; G0283

== ENCOUNTER 2024-10-21 14:24 | Outpatient (POV) | payer MEDICARE, SELFPAY ==
--- NOTE | 2024-10-21 15:45 | EXP.PAIN.OV ---
HPI Data of Consult Patient: new to practice Consult date: 10/21/24 Requesting Physician: Erica Avelar APRN Primary Care Provider: Cristopher Engel MD Consult Narrative Reason for consult: Low back pain, bilateral leg pain, hip pain History of present illness: Mr. Mccracken is a 69 year old male who presents today as a new patient. He is a referral from Dr. Engel's office. Today he rates his pain an 8 out of 10. Patient states that he has been experiencing significant pain in his low back, bilateral hips and bilateral legs since around June. He states that he is caring for his with her condition and so he may have aggravated some of his overall pains even before then. He states the pain did get much more severe in June and has progressed since. He states that it may have eased up a little bit with the physical therapy he is doing however not significantly. He describes this as a sharp sensation with pressure and numbness that goes down into his legs. He states that is worse with increased activity or certain movements. He states it will radiate down to his feet. He states the pain is generally worse on the right side however he will have symptoms into the left as well. Patient states that he used to be very avid about going to the gym on a regular basis however he has been limited with getting in as well as due to the increasing pain. He has been prescribed oral medications including gabapentin and Flexeril, heat and ice and topicals with some improvement. His Pa has been reviewed and is appropriate. CC: Erica Avelar APRN [facility] Disclaimer: The information contained in this section may have been updated after the patient was seen, as this information can be updated by other users. 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 current occupational exposures/hazards: No caffeine: Yes Review of Systems Review of Systems Review of systems:: pertinent systems reviewed and negative unless documented below Review of systems (narrative): Review of Systems: General: No recent weight changes, no fever, no sleep disturbances Respiratory: No cough, no shortness of air, no recurring pulmonary infections Cardiovascular/peripheral vascular: No chest pain, no palpitations, no edema, no shortness of breath Gastrointestinal: No new onset incontinence, normal bowel movements reported Genitourinary: No new onset incontinence Musculoskeletal: Low back pain, bilateral leg pain, bilateral hip pain Psychiatric: [Normal mood/affect] Neurological: [Denies weakness in extremities], [denies balance issues] Meds Home Medications and Allergies Home Medications ?Medication ?Instructions ?Recorded ?Confirmed ?Type tamsulosin 0.4 mg capsule 0.4 mg PO DAILY BPH 03/23/20 07/20/24 History fluticasone propionate 50 1 spr intranasal BID Allergy 04/06/20 07/20/24 History mcg/actuation nasal symptoms spray,suspension aspirin 81 mg tablet,delayed 81 mg PO DAILY HEART HEALTHY 04/10/20 07/20/24 History release meloxicam 15 mg tablet 15 mg PO DAILY 11/10/23 07/20/24 History New Prescriptions to Start Prescriptions: Allergies Allergy/AdvReac Type Severity Reaction Status Date / Time Penicillins Allergy Intermediate I-RASH Verified 07/20/24 14:40 Objective Narrative: Physical Exam: General: Alert and oriented x3, no acute distress, pleasant and cooperative Lungs: Respirations even and unlabored, symmetrical chest expansion Eyes: PERRL Musculoskeletal: Flexion and extension of lumbar [spine] somewhat guarded secondary to pain, [antalgic gait noted] positive leg raise, positive right Bartolome's Neurological: Speech clear, no gross sensory deficit Additional findings Additional findings: FINDINGS: Multiplanar MR imaging of the lumbar spine was performed without contrast. On the sagittal T2-weighted images, there is abnormal decreased signal throughout the lumbar discs. The vertebrae are of normal height. The vertebral alignment is normal. L1-2: There is no significant canal stenosis or neural foraminal narrowing. L2-3: A mild annular bulge is present, with mild facet hypertrophy and mild bilateral neural foraminal narrowing. L3-4: A large broad-based midline disc protrusion is present with moderate facet hypertrophy, and a 6 mm fluid signal focus projecting anteriorly from the right L3-4 facet, likely a synovial cyst. There is severe canal stenosis at this level, best seen on images #17 and 18 of series 5. There is moderate left and moderate to severe right neural foraminal narrowing. L4-5: There is no significant canal stenosis or neural foraminal narrowing. L5-S1: There is no significant canal stenosis or neural foraminal narrowing. IMPRESSION: L3-4 severe canal stenosis, with a synovial cyst projecting anteriorly from the right L3-4 facet, producing moderate left and moderate to severe right neural foraminal narrowing. Reviewed, Interpreted and Dictated by Osmani Piper MD Transcribed by Hoda Buchanan Authenticated and [facility] Assessment and Plan *Assessment and plan (1) Lumbar radiculopathy: Status: Acute Category: Medical Code(s): M54.16 - Radiculopathy, lumbar region (2) Degenerative disc disease: Status: Acute Category: Medical (3) Bilateral hip pain: Status: Acute Category: Medical Code(s): M25.551 - Pain in right hip; M25.552 - Pain in left hip Plan Patient is experiencing worsening pain in his low back with numbness and tingling into his lower extremities. Patient did have limited range of motion of his lumbar spine with a positive leg raise. I did discuss with patient that I do believe they would benefit from a lumbar epidural steroid injection. Risk and benefits were discussed with patient and the patient would like to proceed forward with this plan of care. Patient is not on any blood thinners. Patient has tried and failed conservative therapy including physical therapy, and continued at home stretching exercise for longer than 12 weeks that was physician guided. We will schedule the patient for an LESI L3-L4 under fluoroscopy. Patient has been instructed to contact the clinic with any concerns before the next appointment. Dr. Griffiths has reviewed this note and agrees with this plan of care. This note was dictated using voice recognition software and make contain errors or omissions. All injections are used with Lidocaine, Bupivacaine and Depo Medrol. Occasionally urine drug screen is needed to verify patient's compliance with our office pain contract. This is ordered based off specific treatments related to chronic pain with the potential to abuse certain medications.
[2024-10-21 15:54] VITALS: BP 110/78; PULSE 73; RESP 18; O2SAT 94; BMI 29.0
== END 2024-10-21 23:59 | disposition home or self-care (01) ==
LOC: SC.PAIN 14:26
PROVIDERS: PCP Family Medicine; Visit Provider Nurse Practitioner Family
DX: M51.16 Intervertebral disc disorders with radiculopathy, lumbar region (principal); M25.551 Pain in right hip; M25.552 Pain in left hip
CPT/HCPCS: 99202; G0463

== ENCOUNTER 2024-11-11 14:00 | Outpatient (RCR) | payer MEDICARE, SELFPAY ==
--- NOTE | 2024-11-01 14:06 | HMH.RHREAS ---
Rehab Reassessment Rehab OP Re-assessment Start: 10/25/24 13:17 Freq: Status: Active Protocol: Document 11/01/24 13:07 TIERRA (Rec: 11/01/24 14:04 TIERRA [id number]) E-signed By Randy Mclaughlin, PT Oswestry Index Section 1 Pain Intensity The pain comes and goes and is moderate Section 2 Personal Care (Washing,Dresing) my way of washing or dressing even though it causes some pain Section 3 Lifting I can lift heavy weights, but it gives me extra pain Section 4 Walking I cannot walk more than one mile wihtout increasing pain Section 5 Sitting I can sit in any chair for as long as I like Section 6 Standing I cannot stand more than 1/2 hour without increasing pain Section 7 Sleeping I get pain in bed, but it does not prevent me from sleeping well Section 8 Social Life My social life is normal and gives me no extra pain Section 9 Traveling I get some pain when traveling , but none of my usual forms of travel m Section 10 Changing Degreee of Pain My pain is getting better Score and Risk Level Oswestry Sc 11 Oswestry Risk Level Mild Disability Rehab Re-assessment Subjective Subjective Pt reports 80% improvement at this point. He reports that bowling is going much better. He reports that he was able to bowl last night and was able to demonstrate improved bowling mechanics. 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 He reports that he has noticed significant improvements in his pain, which reaches approximately a 4/10 when he bends over and then comes up right. He also reports that turning in bed and getting in/ out of the car has gotten significantly easier. Pt reports that he is still scheduled for a steroid injection in two weeks, and he is unsure if he wants to proceed with that. Objective Objective Notes TTP: 0/4 to lumbar spine. ROM: 100% to lumbar AROM except lumbar extension 75% Strength: 5/5 MMT to B LEs. Assessment Progress Assessment Progressing as Expected Assessment Notes Pt has made significant progress so far. Pt has made improvements in strength, ROM, function and pain. Pt still demonstrates some deficits in BECKIE score, pain with bending and lumbar ROM. Skilled PT remains indicated for this pt with an emphasis on transitioning to a Home exercise program. Patient goals met ST-8 LT,4,7 Goals Not Met LT,3,5,6 Plan Plan Continue as per initial POC. Begin transitioning to Home exercise program if no setbacks. Frequency of Therapy 1-2/week Duration of therapy 4 weeks Time and Billing Re-Eval Time 10 Re-Eval Billing Units 0 Charge for PT reassessment? No PHYSICIAN CERTIFICATION: I certify the specified therapy services for Matthew Bermudez Adenikegi are required, authorized, and reviewed every 30 days.
== END 2024-11-11 23:59 | disposition home or self-care (01) ==
LOC: PT 14:00
PROVIDERS: Visit Provider Family Medicine
DX: M54.50 Low back pain, unspecified (principal)
CPT/HCPCS: 97010; 97014; 97110; 97530; G0283

== ENCOUNTER 2024-11-15 08:45 | Day surgery (SDC) | payer MEDICARE, SELFPAY ==
[2024-11-15 08:49] VITALS: BP 107/71; PULSE 98; RESP 16; O2SAT 96; BMI 29.0
[2024-11-15 09:20] VITALS: BP 130/75; PULSE 70; RESP 16; O2SAT 96
[2024-11-15] MEDS: methylPREDNISolone ACETATE 80MG/ML VIAL 80 MG (09:33)
[2024-11-15 09:34] VITALS: BP 135/97; PULSE 65; RESP 18; O2SAT 94
[2024-11-15 09:35] VITALS: BP 135/97; PULSE 65; RESP 18; O2SAT 94
--- NOTE | 2024-11-15 09:50 | EXP.PAIN.PRO ---
Procedure Date: 11/15/24 Time: 09:30 Anesthesiologist:: Vijay Newton CRNA Complications:: None Pre-procedure Diagnosis:: Degenerative disc lumbar spine multilevels. Lumbar radiculopathy. Post-procedure Diagnosis:: Same. Indications for Procedure:: Patient very pleasant 69-year-old male who comes to clinic today for lumbar epidural steroid injection at L3-4 level. Patient describes low lumbar back pain as well as bilateral hip and leg radicular symptoms as constant, dull, aching. He rates his pain 7/10. Procedure Details:: Procedure: Lumbar epidural steroid injection under fluoroscopy Informed consent was obtained and the risks and benefits of the procedure were explained to the patient. The patient was taken to the procedure room and noninvasive monitors placed, including noninvasive blood pressure cuff and pulse oximeter. The back was viewed using C-arm Fluoroscopy and prepped using Chloraprep as a cleansing solution and the L3-4 interspace was palpated. Skin and subcutaneous tissues were anesthetized using lidocaine 1.5% and a 25-gauge needle. After this, an 18-gauge Touhy epidural needle was placed into the L3-4 interspace and advanced using fluoroscopic guidance and loss of resistance to air until the epidural space was encountered. After confirmation of needle placement in the epidural space, with dye, a solution containing normal saline, 3 mL and Depo-Medrol 80 mg were incrementally injected into the lumbar epidural space. The patient tolerated the procedure well with no complications. The patient was observed in the Pain Clinic and then discharged home neurologically intact. Plan and Disposition:: Patient was discharged without incident.
== END 2024-11-15 09:20 | disposition home or self-care (01) ==
LOC: SC.PAINP 08:47
PROVIDERS: PCP Family Medicine; Visit Provider Nurse Anesthetist, Certified Registered
DX: M51.16 Intervertebral disc disorders with radiculopathy, lumbar region (principal)
CPT/HCPCS: 62323; J1010

== ENCOUNTER 2024-11-28 13:08 | Outpatient (POV) | payer MEDICARE, SELFPAY ==
--- NOTE | 2024-11-28 13:11 | EXP.PAIN.SOA ---
[facility] Disclaimer: The information contained in this section may have been updated after the patient was seen, as this information can be updated by other users. 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 Today he rates his pain a 0 out of 10 in his back. Patient does state that he has had approximately 100 percent improvement following this injection. He states overall that it is done exceptional. He states that on Thursday he ended up following and his back felt great however he does believe that he may have either sprained his right knee for torn a meniscus. He states that he is scheduled for an MRI tomorrow on this joint. Patient states he is seeing orthopedics related to this. His Pa has been reviewed and is appropriate. Review of Systems: General: No recent weight changes, no fever, no sleep disturbances Respiratory: No cough, no shortness of air, no recurring pulmonary infections Cardiovascular/peripheral vascular: No chest pain, no palpitations, no edema, no shortness of breath Gastrointestinal: No new onset incontinence, normal bowel movements reported Genitourinary: No new onset incontinence Musculoskeletal: Low back pain, right knee pain Psychiatric: [Normal mood/affect] Neurological: [Denies weakness in extremities], [denies balance issues] Pain at rest (0-10 scale): 0 Objective Objective:: Physical Exam: General: Alert and oriented x3, no acute distress, pleasant and cooperative Lungs: Respirations even and unlabored, symmetrical chest expansion Eyes: PERRL Musculoskeletal: Flexion and extension of lumbar [spine] within normal limits Neurological: Speech clear, no gross sensory deficit Has patient had previous pain injection?: Yes Percent improvement in pain since last injection: 100% Conservative treatment options previously tried: Home exercise plan Length of treatment: Longer than 12 weeks Meds Home Medications and Allergies Home Medications ?Medication ?Instructions ?Recorded ?Confirmed ?Type tamsulosin 0.4 mg capsule 0.4 mg PO DAILY BPH 03/23/20 11/22/24 History fluticasone propionate 50 1 spr intranasal BID Allergy 04/06/20 11/22/24 History mcg/actuation nasal symptoms spray,suspension aspirin 81 mg tablet,delayed 81 mg PO DAILY HEART HEALTHY 04/10/20 11/22/24 History release meloxicam 15 mg tablet 15 mg PO DAILY 11/10/23 11/22/24 History New Prescriptions to Start Prescriptions: Allergies Allergy/AdvReac Type Severity Reaction Status Date / Time Penicillins Allergy Intermediate I-RASH Verified 11/22/24 11:37 Assessment and Plan *Assessment and plan (1) Lumbar radiculopathy: Status: Acute Category: Medical Code(s): M54.16 - Radiculopathy, lumbar region (2) Degenerative disc disease: Status: Acute Category: Medical Plan Patient has had significant improvement following his lumbar epidural and does not require any additional injection therapy at this time. I did discuss with patient that I do believe he would benefit from a compounded cream. Patient would like to see how his MRI goes but I have counseled him that he can call our office if he would like us to go ahead and send out the order for this topical. Patient will return to clinic in 1 month for reevaluation of symptoms and plan of care. Patient has been instructed to contact the clinic with any concerns before the next appointment. Dr. Griffiths has reviewed this note and agrees with this plan of care. This note was dictated using voice recognition software and make contain errors or omissions. All injections are used with Lidocaine, Bupivacaine and Depo Medrol. Occasionally urine drug screen is needed to verify patient's compliance with our office pain contract. This is ordered based off specific treatments related to chronic pain with the potential to abuse certain medications.
[2024-11-28 13:28] VITALS: BP 136/80; PULSE 66; RESP 14; O2SAT 96; BMI 29.0
== END 2024-11-28 23:59 | disposition home or self-care (01) ==
LOC: SC.PAIN 13:10
PROVIDERS: PCP Family Medicine; Visit Provider Nurse Practitioner Family
DX: M51.16 Intervertebral disc disorders with radiculopathy, lumbar region (principal)
CPT/HCPCS: 99212; G0463

== ENCOUNTER 2024-11-29 07:02 | Outpatient (CLI) | payer MEDICARE, SELFPAY ==
--- NOTE | 2024-11-29 07:03 | MR_ITS ---
FINAL REPORT CLINICAL HISTORY: right knee pain x1week. pain on medial aspect of patella x1week. no injury or trauma. FINDINGS: Multi planar MR imaging was performed of the right knee. The anterior and posterior cruciate ligaments are intact. The quadriceps and patellar tendons are intact. There is a large complex tear of the posterior horn of the medial meniscus which extends to the margin of the meniscus. Findings are well-seen on images 19 through 21 of series 4. The lateral meniscus is intact. The medial and lateral collateral ligaments appear intact. The medial and lateral retinacula appear intact. There is mild marrow edema of the medial tibial plateau. No evidence of soft tissue inflammatory reaction. IMPRESSION: Large complex tear posterior horn medial meniscus with underlying marrow edema of the medial tibial plateau. Reviewed, Interpreted and Dictated by Osmani Piper MD Transcribed by Kaylee Killian Authenticated and [facility]
== END 2024-11-29 23:59 | disposition home or self-care (01) ==
LOC: RAD 07:03
PROVIDERS: PCP Family Medicine; Visit Provider Nurse Practitioner Family
DX: M25.561 Pain in right knee (principal); M23.91 Unspecified internal derangement of right knee
CPT/HCPCS: 73721

== ENCOUNTER 2024-12-02 15:04 | Outpatient (RCR) | payer MEDICARE, SELFPAY | END 2024-12-02 23:59 | disposition home or self-care (01) | LOC: PT 15:04 | PROVIDERS: Visit Provider Family Medicine | DX: M54.50 Low back pain, unspecified (principal) | CPT/HCPCS: 97110; 97530 ==

== ENCOUNTER 2024-12-28 13:04 | Outpatient (POV) | payer MEDICARE, SELFPAY ==
--- NOTE | 2024-12-28 13:23 | A.OFFVIS_ITS ---
[facility] Disclaimer: The information contained in this section may have been updated after the patient was seen, as this information can be updated by other users. 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 Today he rates his pain a 1 out of 10 in his back and does state he is still doing well overall. He does state from our last visit the MRI of his knee did show that he had a torn meniscus. Patient does state that he did see Dr. Avelar here who was recommending more conservative treatment and letting it heal on its own. He does state that he did want a second opinion and is seeing [facility] for this. He states that his had her hip done here and so that they did call and get him scheduled. Patient does state overall he just wants to make sure he is able to still enjoy his bowling that he does competitively. Patient denies any other changes. He feels like overall his epidural injection of L3-L4 is still working well. His Pa has been reviewed and is appropriate. Review of Systems: General: No recent weight changes, no fever, no sleep disturbances Respiratory: No cough, no shortness of air, no recurring pulmonary infections Cardiovascular/peripheral vascular: No chest pain, no palpitations, no edema, no shortness of breath Gastrointestinal: No new onset incontinence, normal bowel movements reported Genitourinary: No new onset incontinence Musculoskeletal: Low back pain, right knee pain Psychiatric: [Normal mood/affect] Neurological: [Denies weakness in extremities], [denies balance issues] Pain at rest (0-10 scale): 1 Objective Objective:: Physical Exam: General: Alert and oriented x3, no acute distress, pleasant and cooperative Lungs: Respirations even and unlabored, symmetrical chest expansion Eyes: PERRL Musculoskeletal: Flexion and extension of lumbar [spine] within normal limits Neurological: Speech clear, no gross sensory deficit Has patient had previous pain injection?: No Conservative treatment options previously tried: Home exercise plan Length of treatment: Longer than 12 weeks Meds Home Medications and Allergies Home Medications ?Medication ?Instructions ?Recorded ?Confirmed ?Type tamsulosin 0.4 mg capsule 0.4 mg PO DAILY BPH 03/23/20 12/06/24 History fluticasone propionate 50 1 spr intranasal BID Allergy 04/06/20 12/06/24 History mcg/actuation nasal symptoms spray,suspension aspirin 81 mg tablet,delayed 81 mg PO DAILY HEART HEALTHY 04/10/20 12/06/24 History release meloxicam 15 mg tablet 15 mg PO DAILY 11/10/23 12/06/24 History New Prescriptions to Start Prescriptions: Allergies Allergy/AdvReac Type Severity Reaction Status Date / Time Penicillins Allergy Intermediate I-RASH Verified 12/06/24 14:52 Assessment and Plan *Assessment and plan (1) Lumbar radiculopathy: Status: Acute Category: Medical Code(s): M54.16 - Radiculopathy, lumbar region (2) Degenerative disc disease: Status: Acute Category: Medical (3) Internal derangement of right knee: Status: Acute Category: Medical Code(s): M23.91 - Unspecified internal derangement of right knee Plan Patient has continued to do well following his lumbar epidural and does not require any additional injection therapy at this time. I did discuss with the patient in future if he continues to have chronic pain related to the meniscus tear we may be able to try and do some injection therapy. Patient will return to clinic in 3 months for reevaluation of symptoms and plan of care. Patient has been instructed to contact the clinic with any concerns before the next appointment. Dr. Griffiths has reviewed this note and agrees with this plan of care. This note was dictated using voice recognition software and make contain errors or omissions. All injections are used with Lidocaine, Bupivacaine and Depo Medrol. Occasionally urine drug screen is needed to verify patient's compliance with our office pain contract. This is ordered based off specific treatments related to chronic pain with the potential to abuse certain medications.
[2024-12-28 14:00] VITALS: BP 127/75; PULSE 68; RESP 14; O2SAT 97; BMI 29.0
== END 2024-12-28 23:59 | disposition home or self-care (01) ==
LOC: SC.PAIN 13:06
PROVIDERS: PCP Family Medicine; Visit Provider Nurse Practitioner Family
DX: M54.16 Radiculopathy, lumbar region (principal); M23.91 Unspecified internal derangement of right knee
CPT/HCPCS: 99212; G0463

== ENCOUNTER 2025-03-27 13:22 | Outpatient (POV) | payer MEDICARE, SELFPAY ==
--- OUTSIDE RECORDS SUMMARY | 2024-10-05 11:15 | XMS_ITS ---
Author Organization [facility] Address [address] [place] [id number] Care Team Providers Care Social Worker Masters Name Role Phone Cristopher Engel Primary Care Provider [phone] Allergies Allergen (clinical drug ingredient) Drug/Non Drug [...] Risk Notes Problem Disorder of lumbar disc (905304821) Lumbar disc disease (M51.9) Active confirmed Vital Signs Weight 227 lbs 10/05/2024 Blood pressure systolic 130 mm Hg 10/05/19 25 Blood pressure diastolic 80 mm Hg 025 Heart Rate 90 /min 10/05/2024 Height 73.50 in 10/05/2024 BMI 29.54 kg/m2 10/05/2024 Encounters Encounter Location Date Provider Diagnosis [facility] [address] [facility] [address] [place], [place] [phone] 10/05/2024 Cristopher [place] Lumbago with sciatic a, left side M54.42 [...] phone to repo rt test results, Reason: Progress Notes * Devan BLACK:1955 (70 yo M)Acc No.[id number]:10/05/2024 Progress Notes Patient: Matthew LANDA Provider: Jose Engel M.D. :1955 A ge:69 Y S ex:Male Date:10/05/2024 Address:[place], [id number] Subjective: * Chief Complaints: * 1 . [...] 04/22/2012, Dental Surgery 2013, Upper Endoscopy - [facility] 09/2017, Root Canal - Infection Removed [...] PM > no auth required; CPT code 56221; fax[facility] to [facility] Yvonne Matos 10/14/2024 9:30:07 AM > , See phone encounter 3.?Lumbar disc disease?Imaging: MRI : Spine, Lumbosacral, without contrast (Performed Date - 10/13/2024)?severe stenosis with synovial cyst and foraminal narrowing* Lou Washington 10/05/2024 4:34: 13 PM > no auth required; CPT code 89339; faxed to [facility] Yvonne Matos 10/14/2024 9:30:07 AM > , See phone encounter 4.?Others? Notes: L-spine xray report reviewed in office today?? * Procedure Codes: G 2211 Complex e/m visit add on * Follow Up: v ia phone to report test results * Images: Billing Information: * Visit Code: 56071 Office Visit, Est Pt., Level 3. * Procedure Codes: G2211 Complex e/m visit add on. * Electronic signature of Lisha Engel MD on 03/27/2025 at 01:26 PM EDT Sign off status: Pending * Provider: Jose Engel M.D. Date: 0 10/05/2024 Generated for Pat jauregui/Lauren/Shereenitting on: 0 03/27/2025 01:26 PM EDT History and Physical Notes * HPI (History [...]
--- OUTSIDE RECORDS SUMMARY | 2024-10-18 06:15 | XMS_ITS ---
Author Organization [facility] Address [address] [place] [phone] Care Team Providers Care Timekeeper Name Role Phone Toro Cristopher Primary Care Provider [phone] Allergies Allergen (clinical drug ingredient) Drug/Non Drug [...] day; Duration: 30 day(s) Active Vital Signs Weight 226.8 lbs 10/18/2024 Blood pressure systolic 112 mm Hg 10/18/19 25 Blood pressure diastolic 80 mm Hg 025 Heart Rate 105 /min 10/18/2024 Height 73.50 in 10/18/2024 BMI 29.51 kg/m2 10/18/2024 Encounters Encounter Location Date Provider Diagnosis [facility] [facility] [address] [id number] 10/18/2024 Cristopher Engel Acute gastroenteriti s K52.9 Assessments Encounter Date Diagnosis (ICD Code) Assessment Notes Treatment Notes Treatment Clinical Notes Section Notes 10/18/2024 Acute gastroenteritis (ICD-10 - K52.9) Plan Of Treatment Medication Medication Name Sig Start Date Stop Date Notes Ondansetron HCl 4 MG 1 tablet Orally Three times a day Next Appt Details Follow Up: via phone to repo rt progress, Reason: Progress Notes * Matthwe BLACKDOB:1955 (70 yo M)Acc No.[id number]:10/18/2024 Progress Notes Patient: Matthew LANDA Provider: Jose Engel M.D. :1955 A ge:69 Y S ex:Male Date:10/18/2024 Address:[place], [id number] Subjective: * Chief Complaints: * 1 . [...] 04/22/2012, Dental Surgery 2013, Upper Endoscopy - [facility] 09/2017, Root Canal - Infection Removed 10/2018, [facility]copy- [facility] 04/10/2020, Cholecystectomy 06/2021. * Family History: [...] p lat 127 100 - 400 * Radha Sanders 10/18/2024 11: 03:35 AM > , Provider reviewed results while patient in office. * Procedure Codes: G 2211 Complex e/[place], [address] CAPILLARY BLOOD DRAW, 92269 CBC WITH AUTO DIFF * Follow Up: v ia phone to report progress * Images: Billing Information: * Visit Code: 90302 Office Visit, Est Pt., Level 3. * Procedure Codes: G2211 Complex e/[place]. [address] CAPILLARY BLOOD DRAW. 79852 CBC WITH AUTO DIFF. * Electronic signature of Lisha Engel MD on 03/27/2025 at 01:25 PM EDT Sign off status: Pending * Provider: Jose Engel M.D. Date: 0 10/18/2024 Generated for Pat jauregui/Lauren/Shereenitting on: 0 03/27/2025 01:25 PM EDT History and Physical Notes * [...]
--- OUTSIDE RECORDS SUMMARY | 2025-03-27 13:26 | XMS_ITS | Patient Health Record ---
[facility] [address] [facility] [address] [place], [place] [id number] Care Team Providers Care Laminator Preforms Name Role Phone Toro Cristopher Primary Care Provider Jeffrey Becker Unavailable [phone] Gosia Shah Unavailable [phone] Allergies Allergen (clinical drug ingredient) Drug/Non Drug Allergy documented on EMR Reaction Allergy Type Onset Date Status Substance with penicillin structure and antibacterial mechanism of action (substance) Penicillins Unknown Drug Allergy Active Results Component Value Reference Range Notes venous doppler ultrasound le g, lower right Reviewed date:04/13/2024 09:17:42 AM Interpretation:Normal Performing Lab: Notes/Report: Normal MRI : Spine, Lumbosacral, wi thout contrast Reviewed date:10/14/2024 09:30:12 AM Interpretation:severe stenosis with synovial cyst and foraminal narrowing Performing Lab: Notes/Report: severe stenosis with synovial cyst and foraminal narrowing CBC Fingerstick (in house) Reviewed date:10/19/2024 08:52:56 [...] - 38 plat 127 100 - 400 CBC Fingerstick (in house) Reviewed date:07/19/2024 01:23:10 [...] - 38 plat 154 100 - 400 CBC Fingerstick (in house) Reviewed date:07/06/2024 04:36:00 [...] - 38 plat 136 100 - 400 X ray : Spine, lumbosacral Reviewed date:09/07/2024 11:48:03 AM Interpretation:mild diffuse degenerative change Performing Lab: Notes/Report: mild diffuse degenerative change P-Lipid Panel Reviewed date:09/09/2024 01:32:05 PM Interpretation:Normal Performing Lab: Notes/Report: Test performed by [facility], [facility] [address] [place] [address] , [address], [place] [address] Luis Carlos Chinchilla MD, Securities Sales Associate CLIA: [id number] Cholesterol 162 <200 mg/dL Triglycerides 148 <150 [...] Interpretation:Normal Performing Lab: Notes/Report: Test performed by [facility] [address] [place] [address] [place] [address] Luis Carlos Chinchilla MD, Securities Sales Associate CLIA: [id number] PSA 1.83 <4.00 ng/mL Please note this is an ultrasensitive PSA assay with a lower limit of detection of 0.014 ng/mL. This test is performed by the [place] ECLIA methodology. Values obtained with different assay methods or kits cannot be directly compared. P-Vitamin D 25-Hydroxy Reviewed date:09/09/2024 01:32:05 PM Interpretation:Normal Performing Lab: Notes/Report: Test performed by [facility] [address] [place] [address] [address], [place] [address] Luis Carlos Chinchilla MD, Securities Sales Associate CLIA: [id number] Vitamin D 25-Hydroxy 62.1 30.0-100.0 ng/mL Interpretation of Vitamin D 25 OH: < 20 ng/mL - Deficiency 20 - 29 ng/mL - Insufficiency 30 - 100 ng/mL - Sufficiency > 100 ng/mL - Super-therapeutic- toxicity may occur above this level. Clinical correlation required. Medications Medication SIG (Take, Route, Frequency, Duration) Notes Start Date End Date Status Aspirin 81 MG 1 TAB(S) ORALLY ONCE A DAY; Duration: 30 DAY(S) Active Probiotic Formula 1-250 BILLION-MG 1 cap(s) orally once a day Active Fish Oil 1000 MG 1 cap(s) orally once daily Active Fluticasone Propionate 50 MCG/ACT INSTILL 1 SPRAY INTRANASALLY 2 TIMES DAILY DIRCETED; Duration: 90 Active CPAP SUPPLIES DIRECTED 09/20/2019 Act isacc Cyclobenzaprine HCl 10 MG 1 tab(s) Orall y three times a day as needed 08/12/2024 Active CareTouch CPAP & BIPAP Hose DIRECTED G47.30 08/11/2008 Active Garlic 1 TAB(S) PO TWICE A DAY Active Vitamin D3 125 MCG (5000 UT) 1 tab(s) orally once a day 05/06/2016 Active Meloxicam 15 MG 1 tab(s) orally once a day; Duration: 30 day(s) 12/31/2022 Not-Taking Ondansetron HCl 4 MG 1 tablet Orally Thr ee times a day 10/18/2024 Active CoQ10 100 MG 1 cap(s) orally once a day Active Multiple Vitamin - 1 cap(s) orally twic e a day; Duration: 30 day(s) Active Tamsulosin HCl 0.4 MG 1 capsule Orally O nce a day; Duration: 90 days Active Gabapentin 300 MG 1 capsule Orally Two times a day; Duration: 30 day(s) 01/16/2025 Active Immunizations Vaccine Route Administration Date Status Comme nts COVID 19 Moderna Unknown 12/05/2020 Administered COVID 19 Moderna Unknown 01/02/2021 Administered COVID 19 Moderna Unknown 08/11/2021 Administered Fluzone High Dose (65yr and older) IM Intramuscular 07/25/2022 Administered Fluzone High Dose (65yr and older) Unknown 07/02/2023 Administered PNEUMOVAX 23 VACCINE IM Intramuscular 08/09/2021 Administe red Prevnar (PCV20) IM Intramuscular 09/02/2022 Administered Shingrix Unknown 09/30/2022 Administered Problems Problem Type SNOMED Code ICD Code Onset Dates Problem Status W/U Status Risk Notes Problem Sinusitis (61782622) Sinusitis (J32.9) Active confirmed Problem Vitamin D deficiency (52750266) Vitamin D deficiency (E55.9) Active confirmed Problem Otitis externa (5821140) Otitis externa (H60.90) Active confirmed Problem Rosacea (640862472) Rosacea (L71.9) Active confirmed Problem Disorder of lumbar disc (525771680) Lumbar disc disease (M51.9) Active confirmed Problem Sciatica (27315020) Lumbago with sciatica, right side (M54.41) Active confirmed Problem Sciatica (23820889) Lumbago with sciatica, left side (M54.42) Active confirmed Problem Constipation (23470402) Constipation, unspecified constipation type (K59.00) Active confirmed Problem Lower urinary tract symptoms due to benign prostatic hypertrophy (27827000907732) Benign non-nodular prostatic hyperplasia with lower urinary tract symptoms (N40.1) Active confirmed Problem Erectile dysfunction (disorder) (680907493) Erectile dysfunction, unspecified erectile dysfunction type (N52.9) Active confirmed Problem Left flank pain (101933631) Left flank pain (R10.9) Active confirmed Problem Sleep apnea (00035551) Sleep apnea, unspecified type (G47.30) Active confirmed Problem Herpes simplex (25623689) History of herpes simplex infection (Z86.19) Active confirmed Problem Vitamin D deficiency (65044869) Low vitamin D level (E55.9) Active confirmed Problem Prolapsed lumbar intervertebral disc (460542729) Lumbar disc herniation (M51.26) Active confirmed Problem Sleep apnea (60721782) Unspecified sleep apnea (G47.30) Active confirmed Problem Age-related osteoporosis (540189984) Osteoporosis without current pathological fracture, unspecified osteoporosis type (M81.0) Active confirmed Problem Genital herpes simplex (04563795) Genital herpes in men (A60.02) Active confirmed Problem Allergic rhinitis (83426292) Chronic allergic rhinitis, unspecified seasonality, unspecified trigger (J30.9) Active confirmed Problem Spinal stenosis of lumbar region (38739219) Spinal stenosis of lumbar region without neurogenic claudication (M48.061) Active confirmed Vital Signs Heart Rate 105 /min 10/18/2024 Blood pressure diastolic 80 mm Hg 10/18/2024 Height 73.50 in 10/18/2024 Blood pressure systolic 112 mm Hg 10/18/2024 Weight 226.8 lbs 10/18/2024 BMI 29.51 kg/m2 10/18/2024 Encounters Encounter Location Date Provider Diagnosis [facility] [address] [facility] [address] [place], [place] [id number] 04/11/2024 Cristopher Ho Ho Kus Pain in right thigh M79.651 [facility] [address] [place], [place] [id number] 07/06/2024 Gosia Shah Acute URI J06.9 [facility] [address] [facility] [address] [place], [place] [id number] 07/19/2024 Cristopher Ho Ho Kus Acute cough R05.1 [facility] [address] [place], [place] [id number] 08/22/2024 Jeffrey Becker Acute midline low ba ck pain, unspecified whether sciatica present M54.50 [facility] [address] [place], [place] [id number] 09/06/2024 Cristopher Ho Ho Kus Lumbago with sciatic a, right side M54.41 and Lumbago with sciatica, left side M54.42 [facility] [address] [place], [place] [id number] 09/08/2024 Cristopher Ho Ho Kus Benign non-nodular prostatic hyperplasia with lower urinary tract symptoms N40.1 ; Vitamin D deficiency E55.9 ; Prostate cancer screening Z12.5 ; Screening, lipid Z13.220 and Wart of hand B07.9 [facility] [address] [place], [place] [id number] 10/05/2024 Cristopher Ho Ho Kus Lumbago with sciatic a, left side M54.42 ; Lumbago with sciatica, right side M54.41 and Lumbar disc disease M51.9 [facility] [address] [place], [place] [id number] 10/18/2024 Cristopher Ho Ho Kus Acute gastroenteriti s K52.9 [facility] [address] [place], [place] [id number] 04/01/2024 Cristopher Ho Ho Kus Unspecified sleep ap wilfred G47.30 [facility] [address] [place], [place] [id number] 08/12/2024 Gosia Crowdy Left flank pain R10. 9 [facility] [address] [place], [place] [id number] 09/07/2024 Cristopher Ho Ho Kus [facility] [address] [facility] [address] [place], [place] [id number] 10/14/2024 Cristopher Ho Ho Kus Lumbago with sciatic a, left side M54.42 ; Lumbago with sciatica, right side M54.41 ; Lumbar disc disease M51.9 ; Lumbar disc herniation M51.26 and Spinal stenosis of lumbar region without neurogenic claudication M48.061 [facility] [address] [place], [place] [id number] 10/31/2024 Cristopher Ho Ho Kus Lumbago with sciatic a, left side M54.42 [facility] [address] [facility] [address] [place], [place] [id number] 01/16/2025 Cristopher Ho Ho Kus Lumbago with sciatic a, left side M54.42 [facility] [address] [facility] [address] [place], [place] [id number] 02/14/2025 Cristopher Ho Ho Kus Assessments Encounter Date Diagnosis (ICD Code) Assessment Notes Treatment Notes Treatment Clinical Notes Section Notes 04/01/2024 Unspecified sleep apnea (ICD-10 - G47.30) 04/11/2024 Pain in right thigh (ICD-10 - M79.651) 07/06/2024 Acute URI (ICD-10 - J06.9) 07/19/2024 Acute cough (ICD-10 - R05.1) fluids, rest, supportive measures for fever/symptom relief 08/12/2024 Left flank pain (ICD-10 - R10.9) 08/22/2024 Acute midline low back pain, unspecified whether sciatica present (ICD-10 - M54.50) 09/06/2024 Lumbago with sciatica, right side (ICD-10 - M54.41) 09/06/2024 Lumbago with sciatica, left side (ICD-10 - M54.42) 09/08/2024 Vitamin D deficiency (ICD-10 - E55.9) 09/08/2024 Benign non-nodular prostatic hyperplasia with lower urinary tract symptoms (ICD-10 - N40.1) 10/05/2024 Lumbago with sciatica, right side (ICD-10 - M54.41) 10/05/2024 Lumbago with sciatica, left side (ICD-10 - M54.42) 10/14/2024 Lumbago with sciatica, right side (ICD-10 - M54.41) 10/14/2024 Lumbago with sciatica, left side (ICD-10 - M54.42) 10/18/2024 Acute gastroenteritis (ICD-10 - K52.9) 10/31/2024 Lumbago with sciatica, left side (ICD-10 - M54.42) 01/16/2025 Lumbago with sciatica, left side (ICD-10 - M54.42) 10/14/2024 Lumbar disc disease (ICD-10 - M51.9) 10/05/2024 Lumbar disc disease (ICD-10 - M51.9) 09/08/2024 Prostate cancer screening (ICD-10 - Z12.5) 09/08/2024 Screening, lipid (ICD-10 - Z13.220) 10/14/2024 Lumbar disc herniation (ICD-10 - M51.26) 10/14/2024 Spinal stenosis of lumbar region without neurogenic claudication (ICD-10 - M48.061) 09/08/2024 Wart of hand (ICD-10 - B07.9) 10/05/2024 Other L-spine xray report reviewed in office today Plan Of Treatment No Information Insurance Providers Payer Name Payer Address Payer Phone Subscriber Number Group Number Insured Name Patient Relationship to Insured Coverage Start Date Coverage End Date MEDICARE PART B [address] [address] [place] Villalobos [id number] Matthew Walker Self - patient is the insured 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
--- NOTE | 2025-03-27 13:51 | A.OFFVIS_ITS ---
[facility] Disclaimer: The information contained in this section may have been updated after the patient was seen, as this information can be updated by other users. 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 Today he rates his pain a 4 out of 10. Patient denies any recent falls or injuries. Patient states that he does notice low back pain with certain movements such as coughing. He does describe it as a tight sensation but states that is very short-lived. Patient did previously have a lumbar epidural at L3-L4 that did provide significant relief. He states that he is still never had the radicular symptoms return. Patient does state he is still having some issues with his right knee with swelling. He does also have symptoms for some contracture in his right hand with Dupuytren's his Pa has been reviewed and is appropriate. Review of Systems: General: No recent weight changes, no fever, no sleep disturbances Respiratory: No cough, no shortness of air, no recurring pulmonary infections Cardiovascular/peripheral vascular: No chest pain, no palpitations, no edema, no shortness of breath Gastrointestinal: No new onset incontinence, normal bowel movements reported Genitourinary: No new onset incontinence Musculoskeletal: Low back pain, right knee pain, right hand pain Psychiatric: [Normal mood/affect] Neurological: [Denies weakness in extremities], [denies balance issues] Pain at rest (0-10 scale): 4 Objective Objective:: Physical Exam: General: Alert and oriented x3, no acute distress, pleasant and cooperative Lungs: Respirations even and unlabored, symmetrical chest expansion Eyes: PERRL Musculoskeletal: Flexion and extension of lumbar [spine] somewhat guarded secondary to pain, [antalgic gait noted] Neurological: Speech clear, no gross sensory deficit Has patient had previous pain injection?: No Conservative treatment options previously tried: Home exercise plan Length of treatment: Longer than 12 weeks Meds Home Medications and Allergies Home Medications ?Medication ?Instructions ?Recorded ?Confirmed ?Type tamsulosin 0.4 mg capsule 0.4 mg PO DAILY BPH 03/23/20 12/28/24 History fluticasone propionate 50 1 spr intranasal BID Allergy 04/06/20 12/28/24 History mcg/actuation nasal symptoms spray,suspension aspirin 81 mg tablet,delayed 81 mg PO DAILY HEART HEAL THY 04/10/20 12/28/24 Hi story release meloxicam 15 mg tablet 15 mg PO DAILY 11/10/2306/15 History New Prescriptions to Start Prescriptions: Allergies Allergy/AdvReac Type Severity Reaction Status Date / Time Penicillins Allergy Intermediate I-RASH Verified 12/06/24 14:52 Assessment and Plan *Assessment and plan (1) Degenerative disc disease, lumbar: Status: Acute Category: Medical Code(s): M51.369 - Other intervertebral disc degeneration, lumbar region without mention of lumbar back pain or lower extremity pain (2) Internal derangement of right knee: Status: Acute Category: Medical Code(s): M23.91 - Unspecified internal derangement of right knee Plan I did discuss with the patient due to the fact that his symptoms are not as severe as what they had been previously that I would recommend trying the compounded cream. I will order this and follow-up with him in 1 month. Patient was counseled to try this on the multiple areas of pain he is currently having including his right hand, right knee and low back. Patient acknowledges understanding. Patient has been instructed to contact the clinic with any concerns before the next appointment. Dr. Griffiths has reviewed this note and agrees with this plan of care. This note was dictated using voice recognition software and make contain errors or omissions. All injections are used with Lidocaine, Bupivacaine and dexamethasone. Occasionally urine drug screen is needed to verify patient's compliance with our office pain contract. This is ordered based off specific treatments related to chronic pain with the potential to abuse certain medications.
[2025-03-27 14:31] VITALS: BP 114/78; PULSE 71; RESP 18; O2SAT 95; BMI 30.3
== END 2025-03-27 23:59 | disposition home or self-care (01) ==
LOC: SC.PAIN 13:23
PROVIDERS: PCP Family Medicine; Visit Provider Nurse Practitioner Family
DX: M51.360 Other intervertebral disc degeneration, lumbar region with discogenic back pain only (principal); M23.91 Unspecified internal derangement of right knee
CPT/HCPCS: 99212; G0463

== ENCOUNTER 2025-05-12 08:30 | Day surgery (SDC) | payer MEDICARE, SELFPAY ==
[2025-05-09 11:50] VITALS: BMI 29.7
--- NOTE | 2025-05-12 06:14 | EXP.GEN.HP ---
HPI HPI HPI: Patient is a 70-year-old male with history of degenerative disc disease, lumbar radiculopathy, sleep apena, who presents for follow-up colonoscopy. Patient states that about 25 years ago he had a colonoscopy and was found to have hemorrhoids. I performed colonoscopy in 2009 at which time he had no polyps but he did have diverticulosis and internal hemorrhoids. Colonoscopy which I performed on 04/10/2020 revealed several potential polyps which were removed and 2 of these returned as tubular adenoma. He also had some diverticulosis. He presents for repeat colonoscopy due to history of tubular adenoma on colonoscopy 5 years ago. . [facility] Disclaimer: The information contained in this section may have been updated after the patient was seen, as this information can be updated by other users. 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 current occupational exposures/hazards: No caffeine: Yes Have you lived/traveled outside US in past 30 days?: No Contact w/someone who lives/traveled outside US past 30 days?: No Exposure to someone with infectious disease in past 14 days?: No Do you have a fever (greater than 100.4 F or 38 C)?: No Have you tested positive for COVID-19?: No Exposed to someone with COVID-19 in past 14 days?: No Do you have a sore throat?: No Do you have a cough?: No Do you have any weakness?: No Are you experiencing any nausea/vomitting?: No Do you have any diarrhea?: No Are you experiencing any unusual bleeding?: No Do you have any muscle aches/pain?: No Do you have any abdominal pain?: No Are you experiencing loss of taste or smell?: No Other Medical History Have you received the Flu Vaccine for this season: Yes Have you received the Pneumonia Vaccine: Yes Meds Home Medications and Allergies Home Medications ?Medication ?Instructions ?Recorded ?Confirmed ?Type tamsulosin 0.4 mg capsule 0.4 mg PO DAILY BPH 03/23/20 05/12/25 History fluticasone propionate 50 1 spr intranasal BID Allergy 04/06/20 05/12/25 History mcg/actuation nasal symptoms spray,suspension (Flonase Allergy Relief) aspirin 81 mg tablet,delayed 81 mg PO DAILY HEART HEALTHY 04/10/20 05/12/25 History release meloxicam 15 mg tablet 15 mg PO NEEDED PRN Moderate 11/10/23 05/12/25 History Pain (Scale Score 5-6) sodium,potassium,mag sulfates 17.5 See Rx Instructions PO .COMPLEX 04/10/25 05/12/25 Rx gram-3.13 gram-1.6 gram oral soln #354 mL (Suprep Bowel Prep Kit) cholecalciferol (vitamin D3) 10 10 mcg PO DAILY 05/09/25 05/12/25 History mcg (400 unit) capsule (Vitamin D3) coenzyme Q10 30 mg capsule 30 mg PO DAILY 05/09/25 05/12/25 History cranberry extract 250 mg tablet 250 mg PO DAILY 05/09/25 05/12/25 History gabapentin 300 mg capsule 300 mg PO DAILY 05/09/25 05/12/25 History garlic 300 mg PO DAILY 05/09/25 05/12/25 History lactobacillus combination no.4 3 3,000 mmu cells PO DAILY 05/09/25 05/12/25 History billion cell capsule (Probiotic) magnesium 30 mg tablet 30 mg PO DAILY 05/09/25 05/12/25 History multivitamin 1 tab PO DAILY 05/09/25 05/12/25 History omega3 1,050 mg-dha 300 mg-epa 675 1 cap PO DAILY 05/09/25 05/12/25 History mg-dpa 75 mg-fish-D3 25 mcg capsule New Prescriptions to Start Prescriptions: Allergies Allergy/AdvReac Type Severity Reaction Status Date / Time Penicillins Allergy Intermediate I-RASH Verified 05/12/25 09:00 Exam Data for Last 24 hours I & O for Last 24 hours: Intake & Output 05/09/25 05/10/25 05/11/25 05/12/25 11:59 11:59 11:59 11:59 Weight 225 lb Constitutional Constitutional: no acute distress *Routine HEENT Exam Head: Present normocephalic Eye: Present EOMI and PERRL ENT: Present mucous membranes moist *Routine Neck Exam Neck: Present supple; Absent lymphadenopathy *Routine Respiratory Exam Respiratory: Present CTA bilaterally *Routine Cardiovascular Exam Cardiovascular: Present RRR *Routine Abdominal Exam Abdominal: Present soft and normoactive bowel sounds; Absent tenderness *Routine Rectal Exam Rectal:: deferred *Routine Genitalia Exam Genitalia:: deferred *Routine Extremities Exam Extremities: Absent cyanosis, clubbing or edema *Routine Skin Exam Skin: Present warm; Absent rash *Routine Neurological Exam Neurological: Present alert and oriented X3 Assessment and Plan *Assessment and plan (1) Tubular adenoma of colon: Status: Acute Category: Medical Code(s): D12.6 - Benign neoplasm of colon, unspecified Plan Colonoscopy
[2025-05-12 08:49] VITALS: BMI 29.7
[2025-05-12 08:50] VITALS: BP 146/85; PULSE 71; RESP 18; TEMP 36.2; O2SAT 93
[2025-05-12] MEDS: LACTATED RINGERS 1000ML 1,000 ML 50 ML IV (09:05)
--- NOTE | 2025-05-12 09:21 | P.PNANES_ITS ---
[facility] Disclaimer: The information contained in this section may have been updated after the patient was seen, as this information can be updated by other users. 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 current occupational exposures/hazards: No caffeine: Yes Have you lived/traveled outside US in past 30 days?: No Contact w/someone who lives/traveled outside US past 30 days?: No Exposure to someone with infectious disease in past 14 days?: No Do you have a fever (greater than 100.4 F or 38 C)?: No Have you tested positive for COVID-19?: No Exposed to someone with COVID-19 in past 14 days?: No Do you have a sore throat?: No Do you have a cough?: No Do you have any weakness?: No Are you experiencing any nausea/vomitting?: No Do you have any diarrhea?: No Are you experiencing any unusual bleeding?: No Do you have any muscle aches/pain?: No Do you have any abdominal pain?: No Are you experiencing loss of taste or smell?: No [facility] Anesthesia Checklist Patient Identification Patient Identification: Arm Band and Verbal (Name & ) Structural Data Admitted From: Home Planned Operative Procedure/s: colonoscopy Consent for Planned Operative Procedure(s) Verified: Yes Verified Documents: Surgical Consent NPO Status Verified Time NPO: 00:00 Additional verifications Anesthesia Reactions: No Hx Blood Transfusions: No Blood Transfusion Reaction: No Airway Assessment Mallampati Score:: Class II C-Spine Mobility Assessed: Yes TMJ Mobility Assessed: Yes Dentition: Good Dentition Neurological Assessment Level of Consciousness: Awake, Alert and Appropriate Hx Seizures: No Numbness or tingling in extremities: No Anesthesia Plan Anesthesia Risk discussed: Yes Anesthesia Plan: Verified ASA Class: II Anesthesia Type: MAC
--- NOTE | 2025-05-12 09:56 | HMH.SCOPE ---
Procedure: Date: 05/12/25 Patient Date of :: 1955 Procedure Performed:: Total colonoscopy with polypectomy using snare and biopsy forceps Indications:: Patient is a 70-year-old male with history of degenerative disc disease, lumbar radiculopathy, sleep apena, who presents for follow-up colonoscopy. Patient states that about 25 years ago he had a colonoscopy and was found to have hemorrhoids. I performed colonoscopy in 2009 at which time he had no polyps but he did have diverticulosis and internal hemorrhoids. Colonoscopy which I performed on 04/10/2020 revealed several potential polyps which were removed and 2 of these returned as tubular adenoma. He also had some diverticulosis. He presents for repeat colonoscopy due to history of tubular adenoma on colonoscopy 5 years ago. . Performing Provider:: Severiano Leiva MD Referring Provider:: Cristopher Engel MD . Sedation:: MAC sedation Procedure:: Patient history was obtained and appropriate physical examination was performed. Patient's medications and allergies were reviewed. Informed consent was obtained after explaining the benefits, alternatives, and risks of the procedure including, but not limited to, bleeding, perforation, missed lesions, and adverse reaction to anesthesia medications. Patient was transported to endoscopy procedure room. Patient was connected to monitoring devices. Throughout the procedure the patient's blood pressure, pulse, and oxygen saturations were monitored continuously. Patient identification and planned procedure were verified by the staff. Patient was positioned in lateral decubitus position. Digital anorectal exam was performed. Variable stiffness Olympus colonoscope was inserted and advanced under direct visualization to the cecum. Adequacy of the colonic preparation was noted. The colonoscope was advanced a short distance into the terminal ileum. The colonoscope was then slowly withdrawn while carefully examining the color, texture, anatomy, and integrity of the mucosoa circumferentially. Within the rectum retroflexion was performed. Colonoscope was then withdrawn. Impression: There was some scattered particulate stool which was easily cleared. Within the cecum adjacent to the ileocecal valve there was a diminutive polyp which was only visualized with retroflexion. It was removed with cold snare. In the ascending colon there was a tiny diminutive adenomatous appearing polyp removed with a biopsy forceps. Near the hepatic flexure there was a small polyp removed with cold snare. In the sigmoid colon there was a small polyp, potentially hyperplastic, removed with cold snare. He had moderate sigmoid diverticulosis with a few diverticuli impacted with stool. . Findings:: Polyps as noted above, total of 4 polyps removed Sigmoid diverticulosis Recommendations:: Repeat colonoscopy pending pathology. Likely 3 to 5 years. Complications:: None immediately apparent Estimated blood obtained (mL): 1 Colonoscopy Component Colonoscopy Component Was a colonoscopy performed during today's procedure?: Yes Recommended follow up colonoscopy of at least 10 years?: No If no, follow up colonoscopy recommended in ___ years?: 3-5 Reason for not recommending >/= 10 yr follow-up interval?: See above
[2025-05-12 09:57] VITALS: BP 80/47; PULSE 75; RESP 16; TEMP 36.1; O2SAT 95
[2025-05-12 10:07] VITALS: BP 82/44; PULSE 76; RESP 16; TEMP 36.1; O2SAT 95
[2025-05-12 10:17] VITALS: BP 115/72; PULSE 77; RESP 17; TEMP 36.1; O2SAT 93
[2025-05-12 10:27] VITALS: BP 113/77; PULSE 66; RESP 18; TEMP 36.1; O2SAT 98
== END 2025-05-12 10:47 | disposition home or self-care (01) ==
PROVIDERS: PCP Family Medicine; Visit Provider Surgery
PROC: 0DJD8ZZ Inspection of Lower Intestinal Tract, Via Natural or Artificial Opening Endoscopic (ICD-10-PCS; CPT 45380; principal; 2025-05-12 09:30)
DX: D12.0 Benign neoplasm of cecum (principal); D12.2 Benign neoplasm of ascending colon; D12.3 Benign neoplasm of transverse colon; D12.5 Benign neoplasm of sigmoid colon; K57.30 Diverticulosis of large intestine without perforation or abscess without bleeding; M51.16 Intervertebral disc disorders with radiculopathy, lumbar region; M48.061 Spinal stenosis, lumbar region without neurogenic claudication; Z88.0 Allergy status to penicillin; Z79.82 Long term (current) use of aspirin; Z79.899 Other long term (current) drug therapy
CPT/HCPCS: 45380; 45385; 88305; J2003; J2704; J7120

== ENCOUNTER 2025-09-12 14:41 | Outpatient (CLI) | payer MEDICARE, SELFPAY ==
--- OUTSIDE RECORDS SUMMARY | 2018-08-16 07:14 | XMS_ITS | Continuity of Care Document ---
Author Organization [facility] Address [address] [place] [address] [address] [place] [address] Phone Care Team Providers Care Therapist Asst Name Role [facility] Unavailable Unavailabl e Advance Directives Directive Yes / No Effective Date File Name No Information Encounters Encounter Description Practice Location Reason(s) For Visit Diagnoses Date Provider Providers Copied on Encounter [facility], [address] [place] [address] [address], [place], [address], [place] tel:[phone] [facility] No Information [facility]. [address] [place] [address], [address], [place], [place], [id number], [place]. tel:[phone] Family History Family Member Type Diagnosis Age At Onset No Information Payers Payer name Insurance type Covered constitution party ID Authoriza tion(s) No Information Social History Type Description Quantity Date Captured Comments Sex Male Smoking Status No Information Chief Complaint And Reason For Visit No Information Reason For Referral Reason For Referral No Information History Of Present Illness Encounter Date Complaint History Of Prese nt Illness No Information Functional Status Date Functional Assessmen t No Information Instructions Date Instruction Additional Infor mation No Information Assessments Type Assessment Date No Information Patient Care Teams Name Effective Dates (start - stop) Status Members No Information
--- OUTSIDE RECORDS SUMMARY | 2024-07-06 10:15 | XMS_ITS ---
Author Organization [facility] Address [address] [place] [id number] Care Team Providers Care Letter Sorting Machine Operator Name Role Phone Cristopher Engel Primary Care Provider [phone] Gosia Shah Unavailable [phone] Allergies Allergen (clinical drug ingredient) Drug/Non Drug Allergy documented on EMR Reaction Allergy Type Onset Date Status Substance with penicillin structure and antibacterial mechanism of action (substance) Penicillins Unknown Drug Allergy Active Results Component Value Reference Range Notes CBC Fingerstick (in house) Reviewed date:07/06/2024 04:36:00 PM Interpretation: Performing Lab: Notes/Report: wbc 6.5 3.5 - 10 lym 17.1% 15 - 50 mid 4.7% 2 - 15 gran 78.2% 35 - 80 rbc 4.70 3.5 - 5.5 hgb 14.2 11.5 - 16.5 hct 42.7 35 - 55 mcv 90.9 75 - 100 mch 30.3 25 - 35 mchc 33.3 31 - 38 plat 136 100 - 400 REASON FOR VISIT sore throat, and cough Medications Medication SIG (Take, Route, Frequency, Duration) Notes Start Date End Date Status CoQ10 100 MG 1 cap(s) orally once a day Active Multiple Vitamin - 1 cap(s) orally twic e a day; Duration: 30 day(s) Active Garlic 1 TAB(S) PO TWICE A DAY Active Probiotic Formula 1-250 BILLION-MG 1 cap(s) orally once a day A ctive Vitamin D3 125 MCG (5000 UT) 1 tab(s) orally once a day; Duration: 30 day(s) 05/06/2016 Active Benzonatate 200 MG 1 capsule Orally Thr ee times a day 07/06/2024 Active Tamsulosin HCl 0.4 MG TAKE 1 CAPSULE BY MOUTH EVERY DAY; Duration: 90 Active Zithromax Z-Dustin 250 MG 2 pills first day then one daily for 4 days orally as directed; Duration: 5 days 07/06/2024 Activ e CareTouch CPAP & BIPAP Hose DIRECTED G47.30 08/11/2008 Active Fluticasone Propionate 50 MCG/ACT INSTILL 1 SPRAY INTRANASALLY 2 TIMES DAILY DIRCETED; Duration: 90 Active Meloxicam 15 MG 1 tab(s) orally once a day; Duration: 30 day(s) 12/31/2022 Active Fish Oil 1000 MG 1 cap(s) orally once daily Active Aspirin 81 MG 1 TAB(S) ORALLY ONCE A DAY; Duration: 30 DAY(S) Active CPAP SUPPLIES DIRECTED 09/20/2019 Act isacc Vital Signs Blood pressure systolic 108 mm Hg 07/06/20 24 Blood pressure diastolic 60 mm Hg 024 Heart Rate 66 /min 07/06/2024 Height 73.50 in 07/06/2024 Weight 230.0 lbs 07/06/2024 BMI 29.93 kg/m2 07/06/2024 Encounters Encounter Location Date Provider Diagnosis [facility] [address] [facility] [address] [facility] [address] [place], [place] [id number] 07/06/2024 Gosia Shah Acute URI J06.9 Assessments Encounter Date Diagnosis (ICD Code) Assessment Notes Treatment Notes Treatment Clinical Notes Section Notes 07/06/2024 Acute URI (ICD-10 - J06.9) Plan Of Treatment Medication Medication Name Sig Start Date Stop Date Notes Benzonatate 200 MG 1 capsule Orally Three times a day 06/21 Zithromax Z-Dustin 250 MG 2 pills first day then one daily for 4 days orally as directed; Duration: 5 days 07/06/2024 Next Appt Details Follow Up: prn, Reason: Provider Name:Jeffrey Gorman er, 09/18/2025 01:30:00 PM, [address] [facility] [address] [facility], [address], [place], [place], [id number], Progress Notes * Matthew MCCRACKENDOB:1955 (70 yo M)Acc No.[id number]:07/06/2024 Progress Notes Patient: Matthew LANDA Provider: DEBBI Enriquez :1955 A ge:69 Y S ex:Male Date:07/06/2024 Address:[address] [place] [address] [place], [id number] Pcp:Cristopher Engel Subjective: * Chief Complaints: * 1 . Sore throat, and cough. * HPI: E NT/respiratory: 69 year old male presents with c/o sore throat f eels scratchy, concurrent with cough. Symptoms started Thursday night into Thursday morning. c/o cough P t sts he has a cough and some drainage green/yellow. * ROS: D ERMATOLOGY: no R kelsi. n o H tree. G ASTROENTEROLOGY: no N ausea. n o V omiting. U ROLOGY: no D ifficulty urinating. n o B lood in urine. 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 * Surgical History: A ppendectomy , colonoscopy - Normal 1999, I&D Thrombosed external hemorrhoid 1994, colonoscopy- normal 2009, Surgery on left middle finger 04/22/2012, Dental Surgery 2013, Upper Endoscopy - [facility] 09/2017, Root Canal - Infection Removed 10/2018, Colonscopy- [facility] 04/10/2020, Cholecystectomy 06/2021. * Family History: F ather: 77 yrs, prostate and tongue cancer. M other: 66 yrs, cancer, breast, bone. 2 sister(s) . 1 son(s) , 1 daughter(s) . . * Social History: C URRENT TOBACCO USE S moking Status: Patient does NOT smoke. C affeine: yes, frequency: tea. Exercise: Competitive bowler. Home smoke detector use: yes. Marital Status: . Past smoking status: no, Smoking status: Does not smoke. Alcohol: No. Sexually active: yes. * Medications: T aking Vitamin D3 125 MCG (5000 UT) Tablet 1 tab(s) orally once a day , Taking Garlic 1 TAB 1 TAB(S) PO TWICE A DAY , Taking Multiple Vitamin - Capsule 1 cap(s) orally twice a day , Taking CoQ10 100 MG Capsule 1 cap(s) orally once a day , Taking Probiotic Formula 1-250 BILLION-MG Capsule 1 cap(s) orally once a day , Taking Aspirin 81 MG ENTERIC COATED TABLET 1 TAB(S) ORALLY ONCE A DAY , Taking Fish Oil 1000 MG Capsule 1 cap(s) orally once daily , Taking Meloxicam 15 MG Tablet 1 tab(s) orally once a day , Taking CPAP SUPPLIES DIRECTED , Taking Fluticasone Propionate 50 MCG/ACT Suspension INSTILL 1 SPRAY INTRANASALLY 2 TIMES DAILY DIRCETED , Taking CareTouch CPAP & BIPAP Hose DIRECTED , Notes to Pharmacist: G47.30, Taking Tamsulosin HCl 0.4 MG Capsule TAKE 1 CAPSULE BY MOUTH EVERY DAY , Medication List reviewed and reconciled with the patient * Allergies: P enicillins. Objective: * Vitals: W t:230.0, Temp:98.8, BP:108/60, HR:66, O2 Sat:97% on RA, Nurse:JIM, Ht: 73.50, BMI:29.93. * Examination: E NT/Respiratory: General Appearance: N AD. E ars: a uditory canals normal bilaterally, TM's WNL. N ose : turbinates red, mild congestion. S inuses : tender maxillary sinuses bilaterally. O ral cavity : erythema without exudate on pharynx. Neck : n o cervical lymphadenopathy. H eart : R RR, normal S1 S2, no murmurs. L ungs: c lear to auscultation bilaterally. Assessment: * Assessment: 1. Aidan bauman URI - J06.9 (Primary) Plan: * Treatment: * Labs: * L ab: CBC Fingerstick (in house) (Collection Date & Time - 07/06/2024) Value Reference Range w bc 6.5 3.5 - 10 * l ym 17.1% 15 - 50 * m id 4.7% 2 - 15 * g ran 78.2% 35 - 80 * r bc 4.70 3.5 - 5.5 * h gb 14.2 11.5 - 16.5 * h ct 42.7 35 - 55 * m cv 90.9 75 - 100 * m ch 30.3 25 - 35 * m chc 33.3 31 - 38 * p lat 136 100 - 400 * Judy Wu 07/06/2024 4:35:5 7 PM > , Provider reviewed results while patient in office. * Procedure Codes: 9 4760 [place], [address] CAPILLARY BLOOD DRAW, 30[address] CBC WITH AUTO DIFF * Follow Up: p rn * Images: Billing Information: * Visit Code: 09705 Office Visit, Est Pt., Level 3. * Procedure Codes: [address] [place]. [address] CAPILLARY BLOOD DRAW. 01618 CBC WITH AUTO DIFF. * Electronic signature of DEBBI Poe on 09/12/2025 at 02:44 PM EST Sign off status: Pending * Provider: DEBBI Enriquez Date: 1 Generated for Rajnii juventino/Lauren/eTransmitting on: 11/13/2024 02:44 PM EST History and Physical Notes * HPI (History of Present Illness) Category Sub-Category Detail Notes Category Not es ENT/respiratory sore throat feels scratchy, concurrent with cough. Symptoms started Thursday night into Thursday morning cough Pt sts he has a coug h and some drainage green/yellow Examination Category Sub-Category Detail Notes Category Not es ENT/Respiratory Oral cavity : erythema without exudate on pharynx Sinuses : tender maxillary sin uses bilaterally Ears: auditory canals norm al bilaterally, TM's WNL Neck : no cervical lymphade nopathy Heart : RRR, normal S1 S2, n o murmurs Lungs: clear to auscultatio n bilaterally General Appearance: NAD Nose : turbinates red, mild congestion
--- OUTSIDE RECORDS SUMMARY | 2024-07-19 06:45 | XMS_ITS ---
Author Organization [facility] Address [address] [facility] [address] [place] [id number] Care Team Providers Care Mold Runner Name Role Phone Toro Cristopher Primary Care Provider [phone] Allergies Allergen (clinical drug ingredient) Drug/Non Drug Allergy documented on EMR Reaction Allergy Type Onset Date Status Substance with penicillin structure and antibacterial mechanism of action (substance) Penicillins Unknown Drug Allergy Active Results Component Value Reference Range Notes CBC Fingerstick (in house) Reviewed date:07/19/2024 01:23:10 PM Interpretation: Performing Lab: Notes/Report: wbc 6.6 3.5 - 10 lym 23.8% 15 - 50 mid 6.8% 2 - 15 gran 69.4% 35 - 80 rbc 5.10 3.5 - 5.5 hgb 15.3 11.5 - 16.5 hct 46.4 35 - 55 mcv 90.8 75 - 100 mch 29.9 25 - 35 mchc 32.9 31 - 38 plat 154 100 - 400 REASON FOR VISIT fever Medications Medication SIG (Take, Route, Frequency, Duration) Notes Start Date End Date Status CareTouch CPAP & BIPAP Hose DIRECTED G47.30 08/11/2008 Active Tamsulosin HCl 0.4 MG TAKE 1 CAPSULE BY MOUTH EVERY DAY; Duration: 90 Active CPAP SUPPLIES DIRECTED 09/20/2019 Act isacc Fluticasone Propionate 50 MCG/ACT INSTILL 1 SPRAY INTRANASALLY 2 TIMES DAILY DIRCETED; Duration: 90 Active CoQ10 100 MG 1 cap(s) orally once a day Active Probiotic Formula 1-250 BILLION-MG 1 cap(s) orally once a day A ctive Aspirin 81 MG 1 TAB(S) ORALLY ONCE A DAY; Duration: 30 DAY(S) Active Fish Oil 1000 MG 1 cap(s) orally once daily Active Meloxicam 15 MG 1 tab(s) orally once a day; Duration: 30 day(s) 12/31/2022 Active Garlic 1 TAB(S) PO TWICE A DAY Active Multiple Vitamin - 1 cap(s) orally twic e a day; Duration: 30 day(s) Active Vitamin D3 125 MCG (5000 UT) 1 tab(s) orally once a day; Duration: 30 day(s) 05/06/2016 Active Vital Signs Blood pressure systolic 110 mm Hg 07/19/20 24 Blood pressure diastolic 70 mm Hg 024 Heart Rate 80 /min 07/19/2024 Height 73.50 in 07/19/2024 Weight 226.4 lbs 07/19/2024 BMI 29.46 kg/m2 07/19/2024 Encounters Encounter Location Date Provider Diagnosis [facility] [address] [facility] [address] [facility] [address] [place] [phone] 07/19/2024 Cristopher Engel Acute cough R 05.1 Assessments Encounter Date Diagnosis (ICD Code) Assessment Notes Treatment Notes Treatment Clinical Notes Section Notes 07/19/2024 Acute cough (ICD-10 - R05.1) fluids, rest, supportive measures for fever/symptom relief Plan Of Treatment Treatment Notes Assessment Notes Acute cough fluids, rest, suppor tive measures for fever/symptom relief Next Appt Details Follow Up: via phone to repo rt progress, Reason: Provider Name:Jeffrey Gorman er, 09/18/2025 01:30:00 PM, [address] [facility], [address], [place], [place], [phone], Progress Notes * Matthew BLACKDOB:1955 (70 yo M)Acc No.[id number]:07/19/2024 Progress Notes Patient: Matthew LANDA Provider: Jose Engel M.D. :1955 A ge:69 Y S ex:Male Date:07/19/2024 Address:[place], [id number] Subjective: * Chief Complaints: * 1 . Fever. * HPI: E NT/respiratory: 69 year old male presents with c/o cough P t complains of ongoing greenish yellow sputum production cough. Pt was seen 07/06/2024 and rx'd Zithromax, pt has finished abx. Pt states he had a fever Thursday night as well. Pt states sx have not improved since finishing abx. * ROS: D ERMATOLOGY: no R kelsi. n o H tree. G ASTROENTEROLOGY: no N ausea. n o V omiting. U ROLOGY: no D ifficulty urinating. n o B lood in urine. 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 * Surgical History: A ppendectomy , colonoscopy - Normal 1999, I&D Thrombosed external hemorrhoid 1994, colonoscopy- normal 2009, Surgery on left middle finger 04/22/2012, Dental Surgery 2013, Upper Endoscopy - [facility] 09/2017, Root Canal - Infection Removed 10/2018, Colonscopy- [facility] 04/10/2020, Cholecystectomy 06/2021. * Hospitalization/Major Diagno stic Procedure: D enies Past Hospitalization. * Family History: F ather: 77 yrs, [...] 1 CAPSULE BY MOUTH EVERY DAY , Discontinued Benzonatate 200 MG Capsule 1 capsule Orally Three times a day , Discontinued Zithromax Z-Dustin 250 MG Tablet 2 pills first day then one daily for 4 days orally as directed , Medication List reviewed and reconciled with the patient * Allergies: P enicillins. Objective: * Vitals: W t:226.4, Temp:98.4, BP:110/70, HR:80, O2 Sat:97% on RA, Nurse:rama, Ht: 73.50, BMI:29.46. * Examination: E NT/Respiratory: General Appearance: N AD. E yes: P ERRLA, sclera clear. O ral cavity : n o erythema or exudate seen on pharynx. N yaakov : n o cervical lymphadenopathy. H eart : R RR, normal S1 S2. L ungs: c lear to auscultation bilaterally. Assessment: * Assessment: 1. A mitul cough - R05.1 (Primary) Plan: * Treatment: Value Reference Range w bc 6.6 3.5 - 10 * l ym 23.8% 15 - 50 * m id 6.8% 2 - 15 * g ran 69.4% 35 - 80 * r bc 5.10 3.5 - 5.5 * h gb 15.3 11.5 - 16.5 * h ct 46.4 35 - 55 * m cv 90.8 75 - 100 * m ch 29.9 25 - 35 * m chc 32.9 31 - 38 * p lat 154 100 - 400 * Judy Wu 07/19/2024 11:56: 25 AM > , Provider reviewed results while patient in office. Notes: fluids, rest, supportive measures for fever/symptom relief?? * Procedure Codes: G 2211 Complex e/[place], [address] [place], [address] CAPILLARY BLOOD DRAW, 8[address] CBC WITH AUTO DIFF * Follow Up: v ia phone to report progress * Images: Billing Information: * Visit Code: 67934 Office Visit, Est Pt., Level 3. * Procedure Codes: G2211 Complex e/[place]. [address] [place]. [address] CAPILLARY BLOOD DRAW. 51287 CBC WITH AUTO DIFF. * Electronic signature of Lisha Engel MD on 09/12/2025 at 02:46 PM EST Sign off status: Pending * Provider: Jose Engel M.D. Date: Generated for Pat jauregui/Lauren/Shereenitting on: 11/13/2024 02:46 PM EST History and Physical Notes * HPI (History of Present Illness) Category Sub-Category Detail Notes Category Not es ENT/respiratory cough Pt complains of ongoing greenish yellow sputum production cough. Pt was seen 07/06/2024 and rx'd Zithromax, pt has finished abx. Pt states he had a fever Thursday night as well. Pt states sx have not improved since finishing abx Examination Category Sub-Category Detail Notes Category Not es ENT/Respiratory Oral cavity : no erythema or exudate s een on pharynx Neck : no cervical lymphade nopathy Heart : RRR, normal S1 S2 Lungs: clear to auscultatio n bilaterally General Appearance: NAD Eyes: PERRLA, sclera clear
--- OUTSIDE RECORDS SUMMARY | 2024-08-22 08:45 | XMS_ITS ---
Author Organization [facility] Address [address] [facility] [address] [place] [id number] Care Team Providers Care Data Governance Analyst Name Role Phone Toro Cristopher Primary Care Provider Jeffrey Becker Unavailable [phone] Allergies Allergen (clinical drug ingredient) Drug/Non Drug Allergy documented on EMR Reaction Allergy Type Onset Date Status Substance with penicillin structure and antibacterial mechanism of action (substance) Penicillins Unknown Drug Allergy Active Reason For Referral Reason low back pain Diagnosis 1 Acute midline low ba ck pain, unspecified whether sciatica present (M54.50) Referral [facility] Referring Provider First Name Jeffrey Jon Referring Provider Last Name Eugenio Referring Provider Speciality Family Pra ctice Referred Provider Specialty Physical The rapist General Notes Lou Washington 08/22/20 24 3:13:13 PM > faxed to [facility] PT Referral Priority Routine REASON FOR VISIT leg pain Medications Medication SIG (Take, Route, Frequency, Duration) Notes Start Date End Date Status Multiple Vitamin - 1 cap(s) orally twic e a day; Duration: 30 day(s) Active Garlic 1 TAB(S) PO TWICE A DAY Active Probiotic Formula 1-250 BILLION-MG 1 cap(s) orally once a day Active CoQ10 100 MG 1 cap(s) orally once a day Active Vitamin D3 125 MCG (5000 UT) 1 tab(s) orally once a day; Duration: 30 day(s) 05/06/2016 Active Gabapentin 100 MG 2 Orally At Bed Time 08/22/2024 Active CareTouch CPAP & BIPAP Hose DIRECTED G47.30 08/11/2008 Active Cyclobenzaprine HCl 10 MG 1 tab(s) Orall y three times a day as needed 08/12/2024 Active Meloxicam 15 MG 1 tab(s) orally once a day; Duration: 30 day(s) 12/31/2022 Active Tamsulosin HCl 0.4 MG TAKE 1 CAPSULE BY MOUTH EVERY DAY; Duration: 90 Active Fluticasone Propionate 50 MCG/ACT INSTILL 1 SPRAY INTRANASALLY 2 TIMES DAILY DIRCETED; Duration: 90 Active CPAP SUPPLIES DIRECTED 09/20/2019 Act isacc Fish Oil 1000 MG 1 cap(s) orally once daily Active Aspirin 81 MG 1 TAB(S) ORALLY ONCE A DAY; Duration: 30 DAY(S) Active Vital Signs Blood pressure systolic 130 mm Hg 08/22/20 24 Blood pressure diastolic 70 mm Hg 024 Heart Rate 90 /min 08/22/2024 Height 73.50 in 08/22/2024 Weight 226.4 lbs 08/22/2024 BMI 29.46 kg/m2 08/22/2024 Encounters Encounter Location Date Provider Diagnosis [facility] [address] [place] [id number] 08/22/2024 Jeffrey Becker Acute midline low ba ck pain, unspecified whether sciatica present M54.50 Assessments Encounter Date Diagnosis (ICD Code) Assessment Notes Treatment Notes Treatment Clinical Notes Section Notes 08/22/2024 Acute midline low back pain, unspecified whether sciatica present (ICD-10 - M54.50) Plan Of Treatment Medication Medication Name Sig Start Date Stop Date Notes Gabapentin 100 MG 2 Orally At Bed Time 08/22/2024 Meloxicam 15 MG 1 tab(s) orally once a day; Duration: 30 day(s) 12/31/2022 Referrals Referral Date Details 08/22/2024 08/22/2024, low back pain Next Appt Details Follow Up: as scheduled, Kirsty son: Provider Name:Jeffrey Gorman er, 09/18/2025 01:30:00 PM, [address], [address], [place], [phone], Progress Notes * Devan MCCRACKEN:1955 (70 yo M)Acc No.[id number]:08/22/2024 Progress Notes Patient: Matthew LANDA Provider: Jeffrey Becker M.D. :1955 A ge:69 Y S ex:Male Date:08/22/2024 Address:[facility] [place], [id number] Pcp:Cristopher Engel Subjective: * Chief Complaints: * 1 . Leg pain. * HPI: L ower back: The patient is here today with c/o pain in his lower back and both hips. Pt states the pain will radiate down his legs at time. Sometimes down the right and sometimes down the left leg. Pt states over the past 2 weeks this has worsened. 69 year old male presents with c/o Low Back Pain. c/o radiation of pain. * ROS: D ERMATOLOGY: no R kelsi. n o H tree. G ASTROENTEROLOGY: no N ausea. n o V omiting. n o D iarrhea.? U ROLOGY: no D ifficulty urinating. n [...] 04/22/2012, Dental Surgery 2013, Upper Endoscopy - [facility] 09/2017, Root Canal - Infection Removed 10/2018, Colonscopy- [facility] 04/10/2020, Cholecystectomy 06/2021. * Family History: F [...] 1 cap(s) orally once daily , Taking CPAP SUPPLIES DIRECTED , Taking Fluticasone Propionate 50 MCG/ACT Suspension INSTILL 1 SPRAY INTRANASALLY 2 TIMES DAILY DIRCETED , Taking CareTouch CPAP & BIPAP Hose DIRECTED , Notes to Pharmacist: G47.30, Taking Tamsulosin HCl 0.4 MG Capsule TAKE 1 CAPSULE BY MOUTH EVERY DAY , Taking Cyclobenzaprine HCl 10 MG Tablet 1 tab(s) Orally three times a day as needed , Taking Meloxicam 15 MG Tablet 1 tab(s) orally once a day , Medication List reviewed and reconciled with the patient * Allergies: P enicillins. Objective: * Vitals: W t:226.4, Temp:98.4, BP:130/70, HR:90, Nurse:BILLY, Ht: 73.50, BMI:29.46. Assessment: * Assessment: 1. A cute midline low back pain, unspecified whether sciatica present - M54.50 (Primary) ? Plan: * Treatment: * Procedure Codes: G 2211 Complex e/m visit add on * Follow Up: a s scheduled * Images: Billing Information: * Visit Code: 55283 Office Visit, Est Pt., Level 3. * Procedure Codes: G2211 Complex e/m visit add on. * Electronic signature of Jeffrey Becker MD on 09/12/2025 at 02:45 PM EST Sign off status: Pending * Provider: Jeffrey Becker M.D. Date: 10/23/2023 Generated for Pat jauregui/Lauren/Alberto on: 11/13/2024 02:45 PM EST History and Physical Notes * HPI (History of Present Illness) Category Sub-Category Detail Notes Category Not es Lower back Low Back Pain radiation of pain Consultation Request Notes Referral Date Referring Provider Referred Provider Not es 08/22/2024 Jeffrey Becker , low back p ain
--- OUTSIDE RECORDS SUMMARY | 2024-09-06 06:30 | XMS_ITS ---
Author Organization [facility] Address [address] [place] [id number] Care Team Providers Care Weather Anchor Name Role Phone Cristopher Engel Primary Care Provider Allergies Allergen (clinical drug ingredient) Drug/Non Drug Allergy documented on EMR Reaction Allergy Type Onset Date Status Substance with penicillin structure and antibacterial mechanism of action (substance) Penicillins Unknown Drug Allergy Active Results Component Value Reference Range Notes X ray : Spine, lumbosacral Reviewed date:09/07/2024 11:48:03 AM Interpretation:mild diffuse degenerative change Performing Lab: Notes/Report: mild diffuse degenerative change REASON FOR VISIT Hip Pain Medications Medication SIG (Take, Route, Frequency, Duration) Notes Start Date End Date Status Vitamin D3 125 MCG (5000 UT) 1 tab(s) orally once a day; Duration: 30 day(s) 05/06/2016 Active Cyclobenzaprine HCl 10 MG 1 tab(s) Orall y three times a day as needed 08/12/2024 Active Multiple Vitamin - 1 cap(s) orally twic e a day; Duration: 30 day(s) Active Meloxicam 15 MG 1 tab(s) orally once a day; Duration: 30 day(s) 12/31/2022 Active Garlic 1 TAB(S) PO TWICE A DAY Active Tamsulosin HCl 0.4 MG TAKE 1 CAPSULE BY MOUTH EVERY DAY; Duration: 90 Active CareTouch CPAP & BIPAP Hose DIRECTED G47.30 08/11/2008 Active Fluticasone Propionate 50 MCG/ACT INSTILL 1 SPRAY INTRANASALLY 2 TIMES DAILY DIRCETED; Duration: 90 Active CPAP SUPPLIES DIRECTED 09/20/2019 Act isacc Fish Oil 1000 MG 1 cap(s) orally once daily Active Probiotic Formula 1-250 BILLION-MG 1 cap(s) orally once a day Active CoQ10 100 MG 1 cap(s) orally once a day Active Gabapentin 300 MG 1 capsule Orally Two times a day; Duration: 30 day(s) 09/06/2024 Active Aspirin 81 MG 1 TAB(S) ORALLY ONCE A DAY; Duration: 30 DAY(S) Active Problems Problem Type SNOMED Code ICD Code Onset Dates Problem Status W/U Status Risk Notes Problem Sciatica (82264943) Lumbago with sciatica, right side (M54.41) Active confirmed Problem Sciatica (13939518) Lumbago with sciatica, left side (M54.42) Active confirmed Vital Signs Blood pressure systolic 130 mm Hg 09/06/20 24 Blood pressure diastolic 90 mm Hg 024 Heart Rate 72 /min 09/06/2024 Height 73.50 in 09/06/2024 Weight 228 lbs 09/06/2024 BMI 29.67 kg/m2 09/06/2024 Encounters Encounter Location Date Provider Diagnosis [facility] [address] [place] [id number] 09/06/2024 Cristopher [place] Lumbago with sciatic a, right side M54.41 and Lumbago with sciatica, left side M54.42 Assessments Encounter Date Diagnosis (ICD Code) Assessment Notes Treatment Notes Treatment Clinical Notes Section Notes 09/06/2024 Lumbago with sciatica, right side (ICD-10 - M54.41) 09/06/2024 Lumbago with sciatica, left side (ICD-10 - M54.42) Plan Of Treatment Medication Medication Name Sig Start Date Stop Date Notes Gabapentin 300 MG 1 capsule Orally Two times a day; Duration: 30 day(s) 09/06/2024 Gabapentin 100 MG 2 Orally At Bed Time 08/22/2024 Next Appt Details Follow Up: via phone to repo rt test results, Reason: Provider Name:Jeffrey Gorman er, 09/18/2025 01:30:00 PM, [address], [address], [place], [id number], Progress Notes * Matthew BLACKDOB:1955 (70 yo M)Acc No.[id number]:09/06/2024 Progress Notes Patient: Matthew LANDA Provider: Jose Engel M.D. :1955 A ge:69 Y S ex:Male Date:09/06/2024 Address:[facility] [id number] Subjective: * Chief Complaints: * 1 . Hip Pain. * HPI: H ip/Thigh: 69 year old male presents with c/o radiation of pain P t complains of ongoing bilateral hip pain that radiates down his legs. Pt was seen 08/22 and rx'd Gabapentin and is not sure it is helping with pain. Pt did start PT twice a week 08/29 but is not optimistic it is going to help . Pt is concerned about general mobility issues and that there is something more going on . Pt states getting out of the car is very hard with all of his weight being on his hips. * ROS: C ARDIOLOGY: no D izziness. n o C hest pain. D ERMATOLOGY: no R kelsi. n o H tree. U ROLOGY: no D ifficulty urinating. n [...] 04/22/2012, Dental Surgery 2013, Upper Endoscopy - [facility] 09/2017, Root Canal - Infection Removed 10/2018, Colonscopy- [facility] 04/10/2020, Cholecystectomy 06/2021. * Hospitalization/Major Diagno stic [...] times a day as needed , Taking Gabapentin 100 MG Capsule 2 Orally At Bed Time , Taking Meloxicam 15 MG Tablet 1 tab(s) orally once a day , Medication List reviewed and reconciled with the patient * Allergies: P enicillins. Objective: * Vitals: W t:228, Temp:98.2, BP:130/90, HR:72, Nurse:rama, Ht: 73.50, BMI:29.67. * Examination: G eneral Examination: General Appearance: N AD. L ower back: Straight leg raising test: n egative bilaterally. G ait: n ormal. Assessment: * Assessment: 1. L umbago with sciatica, right side - M54.41 (Primary) 2 . L umbago with sciatica, left side - M54.42 Plan: * Treatment: 2.?Lumbago with sciatica, left side?Imaging: X ray : Spine, lumbosacral (Performed Date - 09/06/2024)?mild diffuse degenerative change* Yvonne Richardson 09/07/2024 11:4 8:04 AM > , See phone encounter * Follow Up: v ia phone to report test results * Images: Billing Information: * Visit Code: 20722 Office Visit, Est Pt., Level 3. * Procedure Codes: * Electronic signature of Lisha Engel MD on 09/12/2025 at 02:45 PM EST Sign off status: Pending * Provider: Jose Engel M.D. Date: 11/07/2023 Generated for Pat jauregui/Lauren/eTransmitting on: 11/13/2024 02:45 PM EST History and Physical Notes * HPI (History of Present Illness) Category Sub-Category Detail Notes Category Not es Hip/Thigh radiation of pain Pt complains o f ongoing bilateral hip pain that radiates down his legs. Pt was seen 08/22 and rx'd Gabapentin and is not sure it is helping with pain. Pt did start PT twice a week 08/29 but is not optimistic it is going to help . Pt is concerned about general mobility issues and that there is something more going on . Pt states getting out of the car is very hard with all of his weight being on his hips Examination Category Sub-Category Detail Notes Category Not es General Examination General Appearance: NAD Lower back Straight leg raising test: negative bilaterally Gait: normal
--- OUTSIDE RECORDS SUMMARY | 2024-09-08 06:15 | XMS_ITS ---
Author Organization [facility] Address [address] [facility] [address] [place] [id number] Care Team Providers Care Learning Services Coordinator Name Role Phone Clovis Cristopher Primary Care Provider Allergies Allergen (clinical drug ingredient) Drug/Non Drug Allergy documented on EMR Reaction Allergy Type Onset Date Status Substance with penicillin structure and antibacterial mechanism of action (substance) Penicillins Unknown Drug Allergy Active Results Component Value Reference Range Notes P-Lipid Panel Reviewed date:09/09/2024 01:32:05 PM Interpretation:Normal Performing Lab: Notes/Report: Test performed by [facility] [address] [place] [address] , [address], [place] [address] Luis Carlos Chinchilla MD, R D Manager CLIA: [id number] Cholesterol 162 <200 mg/dL Triglycerides 148 <150 mg/dL HDL Cholesterol 42 >39 mg/dL Cholesterol / HDL Ratio 3.86 0.00-4.99 Ratio Non-HDL Cholesterol 120 <130 mg/dL LDL Cholesterol (Calculation) 90 <130 mg/dL LDL Cholesterol Levels* Less than 100 mg/dL Optimal 100 to 129 mg/dL Near Optimal/ Above Optimal 130 to 159 mg/dL Borderline High 160 to 189 mg/dL High 190 mg/dL and above Very High * Categories as recommended by the 2004 ATPIII guidelines LDL/HDL Ratio 2.2 <3.3 Ratio LDL Cholesterol Patient History Test Date: 09/08/2023 LDL Results: 82 Units: mg/dL % Change: - Test Date: 09/08/2024 LDL Results: 90 Units: mg/dL % Change: +9% P-PSA Reviewed date:09/09/2024 01:32:05 PM Interpretation:Normal Performing Lab: Notes/Report: Test performed by [facility] , [place] [address] Luis Carlos Chinchilla MD, R D Manager CLIA: [id number] PSA 1.83 <4.00 ng/mL Please note this is an ultrasensitive PSA assay with a lower limit of detection of 0.014 ng/mL. This test is performed by the [place] ECLIA methodology. Values obtained with different assay methods or kits cannot be directly compared. P-Vitamin D 25-Hydroxy Reviewed date:09/09/2024 01:32:05 PM Interpretation:Normal Performing Lab: Notes/Report: Test performed by [facility] [facility] , [place] [address] Luis Carlos Chinchilla MD, R D Manager CLIA: [id number] Vitamin D 25-Hydroxy 62.1 30.0-100.0 ng/mL Interpretation of Vitamin D 25 [place]: < 20 ng/mL - Deficiency 20 - 29 ng/mL - Insufficiency 30 - 100 ng/mL - Sufficiency > 100 ng/mL - Super-therapeutic- toxicity may occur above this level. Clinical correlation required. REASON FOR VISIT Annual physical Medications Medication SIG (Take, Route, Frequency, Duration) Notes Start Date End Date Status Aspirin 81 MG 1 TAB(S) ORALLY ONCE A DAY; Duration: 30 DAY(S) Active Fish Oil 1000 MG 1 cap(s) orally once daily Active CPAP SUPPLIES DIRECTED 09/20/2019 Act isacc Vitamin D3 125 MCG (5000 UT) 1 tab(s) orally once a day 05/06/2016 Active Tamsulosin HCl 0.4 MG TAKE 1 CAPSULE BY MOUTH EVERY DAY Active Garlic 1 TAB(S) PO TWICE A DAY Active Multiple Vitamin - 1 cap(s) orally twic e a day; Duration: 30 day(s) Active Gabapentin 300 MG 1 capsule Orally Two times a day; Duration: 30 day(s) 09/06/2024 Active CoQ10 100 MG 1 cap(s) orally once a day Active Probiotic Formula 1-250 BILLION-MG 1 cap(s) orally once a day Active CareTouch CPAP & BIPAP Hose DIRECTED G47.30 08/11/2008 Active Fluticasone Propionate 50 MCG/ACT INSTILL 1 SPRAY INTRANASALLY 2 TIMES DAILY DIRCETED; Duration: 90 Active Meloxicam 15 MG 1 tab(s) orally once a day; Duration: 30 day(s) 12/31/2022 Active Cyclobenzaprine HCl 10 MG 1 tab(s) Orall y three times a day as needed 08/12/2024 Active Vital Signs Blood pressure systolic 110 mm Hg 09/08/20 24 Blood pressure diastolic 74 mm Hg 024 Heart Rate 96 /min 09/08/2024 Height 73.50 in 09/08/2024 Weight 226.4 lbs 09/08/2024 BMI 29.46 kg/m2 09/08/2024 Encounters Encounter Location Date Provider Diagnosis [facility] [address] [place] [id number] 09/08/2024 Cristopher Clovis Benign non-nodular prostatic hyperplasia with lower urinary tract symptoms N40.1 ; Vitamin D deficiency E55.9 ; Prostate cancer screening Z12.5 ; Screening, lipid Z13.220 and Wart of hand B07.9 Assessments Encounter Date Diagnosis (ICD Code) Assessment Notes Treatment Notes Treatment Clinical Notes Section Notes 09/08/2024 Benign non-nodular prostatic hyperplasia with lower urinary tract symptoms (ICD-10 - N40.1) 09/08/2024 Vitamin D deficiency (ICD-10 - E55.9) 09/08/2024 Prostate cancer screening (ICD-10 - Z12.5) 09/08/2024 Screening, lipid (ICD-10 - Z13.220) 09/08/2024 Wart of hand (ICD-10 - B07.9) Plan Of Treatment Medication Medication Name Sig Start Date Stop Date Notes Vitamin D3 125 MCG (5000 UT) 1 tab(s) orally once a day Tamsulosin HCl 0.4 MG TAKE 1 CAPSULE BY MOUTH EVERY DAY Next Appt Details Follow Up: via phone to repo rt test results, Reason: Provider Name:Jeffrey Gorman , 09/18/2025 01:30:00 PM, [address] [facility] [address] [facility], [address], [place], [place], [id number], Procedure Notes * Category Sub-Category Detail Notes Cryotherapy Wart Indication(s): Tender verrucoi d papule Number treated: 1 Consent: The patient understo od all the risks and benefits prior to treatment. The risks explained included scarring, hyper and/or hypo pigmentation. Although this treatment is highly effective, recurrences do occur and this was explained to the patient Method: cryo/cryo to achieve freeze, refreeze Post-Op instruction: The patient tolerat ed the procedure well, Post Op instructions were given. Signs of infection were discussed. The patient was informed to call if any signs of infection develop such as increasing pain, purulent drainage or beefy redness. The patient was informed that a blister may occur at the cryo site and that this is an expected event. Progress Notes * Matthew BLACKDOB:1955 (70 yo M)Acc No.[id number]:09/08/2024 Physical Patient: Matthew LANDA Provider: Jose Engel M.D. :1955 A ge:69 Y S ex:Male Date:09/08/2024 Address:[id number] Subjective: * Chief Complaints: * 1 . Annual physical. * HPI: H PI: 69 year old male presents with c/o Patient is here today for?Annual physical. Pt is not fasting today. Pt states he is doing well and does any concerns today.? * ROS: D ERMATOLOGY: no R kelsi. [...] 04/22/2012, Dental Surgery 2013, Upper Endoscopy - [facility] 09/2017, Root Canal - Infection Removed 10/2018, [facility]onscopy- [facility] 04/10/2020, Cholecystectomy 06/2021. * Hospitalization/Major Diagno [...] tab(s) orally once a day , Taking Gabapentin 300 MG Capsule 1 capsule Orally Two times a day , Medication List reviewed and reconciled with the patient * Allergies: P enicillins. Objective: * Vitals: W t:226.4, Temp:97.8, BP:110/74, HR:96, Nurse:rama, Ht: 73.50, BMI:29.46. * Examination: G eneral Examination: General Appearance: N AD. H eart: R SR. L ungs:?clear to auscultation. E xtremities: f lesh colored papule on the left index finger.? Assessment: * Assessment: 1. B enign non-nodular prostatic hyperplasia with lower urinary tract symptoms - N40.1 (Primary) 2 . V itamin D deficiency - E55.9 3 . P rostate cancer screening - Z12.5 4 . S creening, lipid - Z13.220 5 . W art of hand - B07.9 Plan: * Treatment: 2. V itamin D deficiency Continue Vitamin D3 Tablet, 125 MCG (5000 UT), 1 tab(s), orally, once a day. L AB: P-Vitamin D 25-Hydroxy (Collection Date & Time - 09/08/2024 01:38 PM) N ormal Value Reference Range V itamin D 25-Hydroxy 62.1 30.0-100.0 - ng/mL * Judy Wu 09/09/2024 1:31:2 7 PM > Pt informed 3.?Prostate cancer screening?LAB: P-PSA (Collection Date & Time - 09/08/2024 01:38 PM)?Normal* Value Reference Range P SA 1.83 <4.00 - ng/mL * Judy Wu 09/09/2024 1:31:2 7 PM > Pt informed 4.?Screening, lipid?LAB: P-Lipid Panel (Collection Date & Time - 09/08/2024 01:38 PM)?Normal* Value Reference Range C holesterol / HDL Ratio 3.86 0.00-4.99 - Ratio * C holesterol 162 <200 - mg/dL * H DL Cholesterol 42 >39 - mg/dL * L DL Cholesterol (Calculation) 90 <130 - mg/d L * L DL/HDL Ratio 2.2 <3.3 - Ratio * N on-HDL Cholesterol 120 <130 - mg/dL * T riglycerides 148 <150 - mg/dL * Judy Wu 09/09/2024 1:31:2 7 PM > Pt informed * Procedures: C ryotherapy Wart: Indication(s): T josef verrucoid papule. N umber treated: 1 . C onsent: T he patient understood all the risks and benefits prior to treatment. The risks explained included scarring, hyper and/or hypo pigmentation. Although this treatment is highly effective, recurrences do occur and this was explained to the patient. M ethod: c marybel/cryo to achieve freeze, refreeze. P ost-Op instruction: T he patient tolerated the procedure well, Post Op instructions were given. Signs of infection were discussed. The patient was informed to call if any signs of infection develop such as increasing pain, purulent drainage or beefy redness. The patient was informed that a blister may occur at the cryo site and that this is an expected event.. * Procedure Codes: 1 7000 DESTRUCTION BENIGN LESION, CRYOSURGERY,ELECTROSURGERY FIRST LESION * Follow Up: v ia phone to report test results * Images: Billing Information: * Visit Code: 27594 Office Visit, Est Pt., Level 4. Modifiers: 25 * Procedure Codes: 26000 DESTRUCTION BENIGN LESION, CRYOSURGERY,ELECTROSURGERY FIRST LESION. * Electronic signature of Lisha Engel MD on 09/12/2025 at 02:45 PM EST Sign off status: Pending * Provider: Jose Engel M.D. Date: 11/09/2023 Generated for Pat jauregui/Lauren/Alberto on: 11/13/2024 02:45 PM EST History and Physical Notes * HPI (History of Present Illness) Category Sub-Category Detail Notes Category Not es HPI Patient is here today for Annual physical. Pt is not fasting today. Pt states he is doing well and does any concerns today Examination Category Sub-Category Detail Notes Category Not es General Examination Heart: RSR Lungs: clear to auscultatio n Extremities: flesh colored papule on the left index finger General Appearance: NAD
--- OUTSIDE RECORDS SUMMARY | 2024-10-05 10:15 | XMS_ITS ---
Author Organization [facility] Address [address] [place] [id number] Care Team Providers Care Globe Cleaner Name Role Phone Cristopher Engel Primary Care Provider Allergies Allergen (clinical drug ingredient) Drug/Non Drug Allergy documented on EMR Reaction Allergy Type Onset Date Status Substance with penicillin structure and antibacterial mechanism of action (substance) Penicillins Unknown Drug Allergy Active Results Component Value Reference Range Notes MRI : Spine, Lumbosacral, wi thout contrast Reviewed date:10/14/2024 09:30:12 AM Interpretation:severe stenosis with synovial cyst and foraminal narrowing Performing Lab: Notes/Report: severe stenosis with synovial cyst and foraminal narrowing REASON FOR VISIT discuss hip and back pain Medications Medication SIG (Take, Route, Frequency, Duration) Notes Start Date End Date Status Aspirin 81 MG 1 TAB(S) ORALLY ONCE A DAY; Duration: 30 DAY(S) Active Fish Oil 1000 MG 1 cap(s) orally once daily Active CoQ10 100 MG 1 cap(s) orally once a day Active Probiotic Formula 1-250 BILLION-MG 1 cap(s) orally once a day Active Multiple Vitamin - 1 cap(s) orally twic e a day; Duration: 30 day(s) Active Tamsulosin HCl 0.4 MG 1 capsule Orally O nce a day; Duration: 90 days Active Garlic 1 TAB(S) PO TWICE A DAY Active Vitamin D3 125 MCG (5000 UT) 1 tab(s) orally once a day 05/06/2016 Active Cyclobenzaprine HCl 10 MG 1 tab(s) Orall y three times a day as needed 08/12/2024 Active Meloxicam 15 MG 1 tab(s) orally once a day; Duration: 30 day(s) 12/31/2022 Active Gabapentin 300 MG 1 capsule Orally Two times a day 09/06/2024 Active CPAP SUPPLIES DIRECTED 09/20/2019 Act isacc Fluticasone Propionate 50 MCG/ACT INSTILL 1 SPRAY INTRANASALLY 2 TIMES DAILY DIRCETED; Duration: 90 Active CareTouch CPAP & BIPAP Hose DIRECTED G47.30 08/11/2008 Active Problems Problem Type SNOMED Code ICD Code Onset Dates Problem Status W/U Status Risk Notes Problem Disorder of lumbar disc (424333786) Lumbar disc disease (M51.9) Active confirmed Vital Signs Blood pressure systolic 130 mm Hg 10/05/19 25 Blood pressure diastolic 80 mm Hg 025 Heart Rate 90 /min 10/05/2024 Height 73.50 in 10/05/2024 Weight 227 lbs 10/05/2024 BMI 29.54 kg/m2 10/05/2024 Encounters Encounter Location Date Provider Diagnosis [facility] [address] [facility] [address] [place], [place] [id number] 10/05/2024 Cristopher [place] Lumbago with sciatic a, left side M54.42 ; Lumbago with sciatica, right side M54.41 and Lumbar disc disease M51.9 Assessments Encounter Date Diagnosis (ICD Code) Assessment Notes Treatment Notes Treatment Clinical Notes Section Notes 10/05/2024 Lumbago with sciatica, left side (ICD-10 - M54.42) 10/05/2024 Lumbago with sciatica, right side (ICD-10 - M54.41) 10/05/2024 Lumbar disc disease (ICD-10 - M51.9) 10/05/2024 Other L-spine xray report reviewed in office today Plan Of Treatment Medication Medication Name Sig Start Date Stop Date Notes Gabapentin 300 MG 1 capsule Orally Two times a day 024 Treatment Notes Assessment Notes Other L-spine xray report reviewed in office today Next Appt Details Follow Up: via phone to repo rt test results, Reason: Provider Name:Jeffrey mistry, 09/18/2025 01:30:00 PM, [address], [address], [place], [phone], Progress Notes * Matthew BLACKDOB:1955 (70 yo M)Acc No.[id number]:10/05/2024 Progress Notes Patient: Matthew LANDA Provider: Jose Engel M.D. :1955 A ge:69 Y S ex:Male Date:10/05/2024 Address:[facility] [place], [place], [id number] Subjective: * Chief Complaints: * 1 . Discuss hip and back pain. * HPI: Kj gomes back: 69 year old male presents with c/o radiation of pain P t here to f/u on lower back pain that radiates down both legs at times. Pt states he has been doing PT twice a week for about 6 weeks. Pt states PT does help for a couple hours but pain then returns. Pt states that he does have pain every night. Pt states he has been taking Gabapentin does help with pain but has not gotten rid of the root problem . Pt states that pain does effect day to day activities that he has to do. * ROS: D ERMATOLOGY: no R kelsi. n o H tree. G ASTROENTEROLOGY: no N ausea. n o V omiting. U ROLOGY: no D ifficulty urinating. n o B lood in urine. 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 * Surgical History: A ppendectomy , colonoscopy - Normal 1999, I&D Thrombosed external hemorrhoid 1994, colonoscopy- normal 2009, Surgery on left middle finger 04/22/2012, Dental Surgery 2013, Upper Endoscopy - [facility] 09/2017, Root Canal - Infection Removed 10/2018, [facility]onscopy- [facility] 04/10/2020, Cholecystectomy 06/2021. * Family History: F [...] Sexually active: yes. * Medications: T aking Garlic 1 TAB 1 TAB(S) PO TWICE [...] DIRECTED , Notes to Pharmacist: G47.30, Taking Cyclobenzaprine HCl 10 MG Tablet 1 tab(s) Orally three times a day as needed , Taking Meloxicam 15 MG Tablet 1 tab(s) orally once a day , Taking Gabapentin 300 MG Capsule 1 capsule Orally Two times a day , Taking Vitamin D3 125 MCG (5000 UT) Tablet 1 tab(s) orally once a day , Taking Tamsulosin HCl 0.4 MG Capsule 1 capsule Orally Once a day , Medication List reviewed and reconciled with the patient * Allergies: P enicillins. Objective: * Vitals: W t:227, Temp:98.0, BP:130/80, HR:90, Nurse:rama, Ht: 73.50, BMI:29.54. * Examination: G eneral Examination: General Appearance: N AD. L ower back: Straight leg raising test: n egative bilaterally. G ait: n ormal. Assessment: * Assessment: 1. L umbago with sciatica, left side - M54.42 (Primary) 2 . L umbago with sciatica, right side - M54.41 3 . L umbar disc disease - M51.9 Plan: * Treatment: 2.?Lumbago with sciatica, right side?Imaging: MRI : Spine, Lumbosacral, without contrast (Performed Date - 10/13/2024)?severe stenosis with synovial cyst and foraminal narrowing* Lou Washington 10/05/2024 4:34: 13 PM > no auth required; CPT code 70877; [facility] 10/14/2024 9:30:07 AM > , See phone encounter 3.?Lumbar disc disease?Imaging: MRI : Spine, Lumbosacral, without contrast (Performed Date - 10/13/2024)?severe stenosis with synovial cyst and foraminal narrowing* Lou Washington 10/05/2024 4:34: 13 PM > no auth required; CPT code 81841; [facility] 10/14/2024 9:30:07 AM > , See phone encounter 4.?Others? Notes: L-spine xray report reviewed in office today?? * Procedure Codes: G 2211 Complex e/m visit add on * Follow Up: v ia phone to report test results * Images: Billing Information: * Visit Code: 03426 Office Visit, Est Pt., Level 3. * Procedure Codes: G2211 Complex e/m visit add on. * Electronic signature of Lisha Engel MD on 09/12/2025 at 02:45 PM EST Sign off status: Pending * Provider: Jose Engel M.D. Date: 0 10/05/2024 Generated for Pat jauregui/Lauren/eTransmitting on: 11/13/2024 02:45 PM EST History and Physical Notes * HPI (History of Present Illness) Category Sub-Category Detail Notes Category Not es Lower back radiation of pain Pt here to f/u on lower back pain that radiates down both legs at times. Pt states he has been doing PT twice a week for about 6 weeks. Pt states PT does help for a couple hours but pain then returns. Pt states that he does have pain every night. Pt states he has been taking Gabapentin does help with pain but has not gotten rid of the root problem . Pt states that pain does effect day to day activities that he has to do Examination Category Sub-Category Detail Notes Category Not es General Examination General Appearance: NAD Lower back Straight leg raising test: negative bilaterally Gait: normal
--- OUTSIDE RECORDS SUMMARY | 2024-10-18 05:15 | XMS_ITS ---
Author Organization [facility] Address [address] [place] [phone] Care Team Providers Care Spray Rig Operator Name Role Phone Toro Cristopher Primary Care Provider Allergies Allergen (clinical drug ingredient) Drug/Non Drug Allergy documented on EMR Reaction Allergy Type Onset Date Status Substance with penicillin structure and antibacterial mechanism of action (substance) Penicillins Unknown Drug Allergy Active Results Component Value Reference Range Notes CBC Fingerstick (in house) Reviewed date:10/19/2024 08:52:56 AM Interpretation: Performing Lab: Notes/Report: wbc 8.7 3.5 - 10 lym 4.20% 15 - 50 mid 8.6% 2 - 15 gran 87.2 35 - 80 rbc 5.36 3.5 - 5.5 hgb 16.1 11.5 - 16.5 hct 47.0 35 - 55 mcv 87.8 75 - 100 mch 30.0 25 - 35 mchc 34.1 31 - 38 plat 127 100 - 400 REASON FOR VISIT Vomiting Medications Medication SIG (Take, Route, Frequency, Duration) Notes Start Date End Date Status Cyclobenzaprine HCl 10 MG 1 tab(s) Orall y three times a day as needed 08/12/2024 Active Vitamin D3 125 MCG (5000 UT) 1 tab(s) orally once a day 05/06/2016 Active Meloxicam 15 MG 1 tab(s) orally once a day; Duration: 30 day(s) 12/31/2022 Not-Taking Gabapentin 300 MG 1 capsule Orally Two times a day 09/06/2024 Active Tamsulosin HCl 0.4 MG 1 capsule Orally O nce a day; Duration: 90 days Active Aspirin 81 MG 1 TAB(S) ORALLY ONCE A DAY; Duration: 30 DAY(S) Active Fish Oil 1000 MG 1 cap(s) orally once daily Active Fluticasone Propionate 50 MCG/ACT INSTILL 1 SPRAY INTRANASALLY 2 TIMES DAILY DIRCETED; Duration: 90 Active CPAP SUPPLIES DIRECTED 09/20/2019 Act isacc CareTouch CPAP & BIPAP Hose DIRECTED G47.30 08/11/2008 Active Probiotic Formula 1-250 BILLION-MG 1 cap(s) orally once a day Active Garlic 1 TAB(S) PO TWICE A DAY Active Ondansetron HCl 4 MG 1 tablet Orally Thr ee times a day 10/18/2024 Active CoQ10 100 MG 1 cap(s) orally once a day Active Multiple Vitamin - 1 cap(s) orally twic e a day; Duration: 30 day(s) Active Vital Signs Blood pressure systolic 112 mm Hg 10/18/19 25 Blood pressure diastolic 80 mm Hg 025 Heart Rate 105 /min 10/18/2024 Height 73.50 in 10/18/2024 Weight 226.8 lbs 10/18/2024 BMI 29.51 kg/m2 10/18/2024 Encounters Encounter Location Date Provider Diagnosis [facility] [address] [facility] [address] [facility] [address] [place] [phone] 10/18/2024 Cristopher Engel Acute gastroenteriti s K52.9 Assessments Encounter Date Diagnosis (ICD Code) Assessment Notes Treatment Notes Treatment Clinical Notes Section Notes 10/18/2024 Acute gastroenteritis (ICD-10 - K52.9) Plan Of Treatment Medication Medication Name Sig Start Date Stop Date Notes Ondansetron HCl 4 MG 1 tablet Orally Three times a day Next Appt Details Follow Up: via phone to repo rt progress, Reason: Provider Name:Jeffrey Gorman er, 09/18/2025 01:30:00 PM, [address] [facility], [address], [place], [phone], Progress Notes * Devan BLACK:1955 (70 yo M)Acc No.[id number]:10/18/2024 Progress Notes Patient: Matthew LANDA Provider: Jose Engel M.D. :1955 A ge:69 Y S ex:Male Date:10/18/2024 Address:[place], [id number] Subjective: * Chief Complaints: * 1 . Vomiting. * HPI: G astroenterology: 69 year old male presents with c/o Nausea. c/o Vomiting.? c/o Diarrhea T he pt states he started about 8:30 last night with nausea and violent diarrhea. Pt states he did have some vomiting last night around 11 pm. Pt states he shared a meal with his and is wondering if they could have food poisoning. Denies : Fever. * ROS: C ARDIOLOGY: no C hest pain. n o S hortness of breath. ? D ERMATOLOGY: no R kelsi. n o [...] 04/22/2012, Dental Surgery 2013, Upper Endoscopy - [facility] 09/2017, Root Canal - Infection Removed 10/2018, Colonscopy- [facility] 04/10/2020, Cholecystectomy 06/2021. * Family History: F [...] times a day as needed , Taking Vitamin D3 125 MCG (5000 UT) Tablet 1 tab(s) orally once a day , Taking Tamsulosin HCl 0.4 MG Capsule 1 capsule Orally Once a day , Taking Gabapentin 300 MG Capsule 1 capsule Orally Two times a day , Not-Taking Meloxicam 15 MG Tablet 1 tab(s) orally once a day , Medication List reviewed and reconciled with the patient * Allergies: P enicillins. Objective: * Vitals: W t:226.8, Temp:99.7, BP:112/80, HR:105, Nurse:BILLY, Ht: 73.50, BMI:29.51. * Examination: G astroenterology: General Appearance: p leasant, NAD. O ral cavity: n ormal. S clera: a nicteric. H eart sounds: r egular, normal S1 S2. L ungs: c lear, no rales or wheezes. A bdomen: B S present, soft, nontender, no guarding or rigidity, no masses felt. Assessment: * Assessment: 1. A cute gastroenteritis - K52.9 (Primary) Plan: * Treatment: Value Reference Range w bc 8.7 3.5 - 10 * l ym 4.20% 15 - 50 * m id 8.6% 2 - 15 * g ran 87.2 35 - 80 * r bc 5.36 3.5 - 5.5 * h gb 16.1 11.5 - 16.5 * h ct 47.0 35 - 55 * m cv 87.8 75 - 100 * m ch 30.0 25 - 35 * m chc 34.1 31 - 38 * p lat 127 100 - 400 * MarilynRadha Kj 10/18/2024 11: 03:35 AM > , Provider reviewed results while patient in office. * Procedure Codes: G 2211 Complex e/[place], [address] CAPILLARY BLOOD DRAW, 25584 CBC WITH AUTO DIFF * Follow Up: v ia phone to report progress * Images: Billing Information: * Visit Code: 93430 Office Visit, Est Pt., Level 3. * Procedure Codes: G2211 Complex e/[place]. [address] CAPILLARY BLOOD DRAW. 10876 CBC WITH AUTO DIFF. * Electronic signature of Lisha Engel MD on 09/12/2025 at 02:44 PM EST Sign off status: Pending * Provider: Jose Engel M.D. Date: 0 10/18/2024 Generated for Rajnii juventino/Lauren/eTransmitting on: 11/13/2024 02:44 PM EST History and Physical Notes * HPI (History of Present Illness) Category Sub-Category Detail Notes Category Not es Gastroenterology Fever Vomiting Diarrhea The pt states he sta rted about 8:30 last night with nausea and violent diarrhea. Pt states he did have some vomiting last night around 11 pm. Pt states he shared a meal with his and is wondering if they could have food poisoning Nausea Examination Category Sub-Category Detail Notes Category Not es Gastroenterology Oral cavity: normal Sclera: anicteric Heart sounds: regular, normal S1 S 2 Lungs: clear, no rales or w heezes Abdomen: BS present, soft, no ntender, no guarding or rigidity, no masses felt General Appearance: pleasant, NAD
--- OUTSIDE RECORDS SUMMARY | 2025-08-29 06:00 | XMS_ITS ---
Author Organization [facility] Address [address] [facility] [address] [place] [id number] Care Team Providers Care Tinning Machine Set Up Operator Name Role Phone Toro Cristopher Primary Care Provider Allergies Allergen (clinical drug ingredient) Drug/Non Drug Allergy documented on EMR Reaction Allergy Type Onset Date Status Substance with penicillin structure and antibacterial mechanism of action (substance) Penicillins Unknown Drug Allergy Active Results Component Value Reference Range Notes CBC Fingerstick (in house) Reviewed date:08/30/2025 03:36:12 PM Interpretation: Performing Lab: Notes/Report: wbc 6.8% 3.5 - 10 lym 18.4% 15 - 50 mid 4.3% 2 - 15 gran 77.3% 35 - 80 rbc 4.83 3.5 - 5.5 hgb 14.6 11.5 - 16.5 hct 43.5 35 - 55 mcv 89.9 75 - 100 mch 30.3 25 - 35 mchc 33.7 31 - 38 plat 103 100 - 400 REASON FOR VISIT chest congestion Medications Medication SIG (Take, Route, Frequency, Duration) Notes Start Date End Date Status CoQ10 100 MG 1 cap(s) orally once a day Active Probiotic Formula 1-250 BILLION-MG 1 cap(s) orally once a day Active Fish Oil 1000 MG 1 cap(s) orally once daily Active Aspirin 81 MG 1 TAB(S) ORALLY ONCE A DAY; Duration: 30 DAY(S) Active CareTouch CPAP & BIPAP Hose DIRECTED G47.30 08/11/2008 Active Garlic 1 TAB(S) PO TWICE A DAY Active Multiple Vitamin - 1 cap(s) orally twic e a day; Duration: 30 day(s) Active CPAP SUPPLIES to be used at bedtime 09/20/2019 Active Tamsulosin HCl 0.4 MG 1 capsule Orally O nce a day; Duration: 30 days Active Gabapentin 300 MG 1 capsule Orally Onc e a day; Duration: 90 days 05/25/2025 Active Fluticasone Propionate 50 MCG/ACT INSTILL 1 SPRAY INTRANASALLY 2 TIMES DAILY DIRCETED; Duration: 30 Active Zithromax Z-Dustin 250 MG as directed Orall y daily; Duration: 5 days 08/29/2025 Active Ondansetron HCl 4 MG 1 tablet Orally Thr ee times a day 10/18/2024 Active Vitamin D3 125 MCG (5000 UT) 1 tab(s) orally once a day 05/06/2016 Active Cyclobenzaprine HCl 10 MG 1 tab(s) Orall y three times a day as needed 08/12/2024 Active Vital Signs Blood pressure systolic 124 mm Hg 08/29/20 25 Blood pressure diastolic 74 mm Hg 025 Heart Rate 96 /min 08/29/2025 Height 73.50 in 08/29/2025 Weight 232 lbs 08/29/2025 BMI 30.19 kg/m2 08/29/2025 Encounters Encounter Location Date Provider Diagnosis [facility] [address] [facility] [address] [place] [id number] 08/29/2025 Cristopher Engel Acute URI J06.9 Assessments Encounter Date Diagnosis (ICD Code) Assessment Notes Treatment Notes Treatment Clinical Notes Section Notes 08/29/2025 Acute URI (ICD-10 - J06.9) Plan Of Treatment Medication Medication Name Sig Start Date Stop Date Notes Zithromax Z-Dustin 250 MG as directed Orall y daily; Duration: 5 days 08/29/2025 Next Appt Details Follow Up: prn, Reason: Provider Name:Jeffrey mistry, 09/18/2025 01:30:00 PM, [address], [address], [place], [place], [phone], Progress Notes * Devan MCCRACKEN:1955 (70 yo M)Acc No.[id number]:08/29/2025 Progress Notes Patient: Matthew LANDA Provider: Jose Engel M.D. :1955 A ge:70 Y S ex:Male Date:08/29/2025 Address:[place], [id number] Subjective: * Chief Complaints: * 1 . Chest congestion. * HPI: E NT/respiratory: 70 year old male presents with c/o nasal congestion P t complains of nasal congestion for 5 days. Associated with sore throat and small cough . Denies : Fever. D enies : body aches. 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 * Surgical History: A ppendectomy , colonoscopy - Normal 1999, I&D Thrombosed external hemorrhoid 1994, colonoscopy- normal 2009, Surgery on left middle finger 04/22/2012, Dental Surgery 2013, Upper Endoscopy - [facility] 09/2017, Root Canal - Infection Removed 10/2018, Colonscopy- [facility] 04/10/2020, Cholecystectomy 06/2021. * Hospitalization/Major Diagno stic Procedure: D enies Past Hospitalization. * Family History: F ather: 77 yrs, prostate and tongue cancer. M other: 66 yrs, cancer, breast, bone. 2 sister(s) . 1 son(s) , 1 daughter(s) . . * Social History: C URRENT TOBACCO USE: No S moking Status: Patient does NOT smoke. [...] 1 cap(s) orally once daily , Taking CareTouch CPAP & BIPAP Hose DIRECTED , Notes to Pharmacist: G47.30, Taking Cyclobenzaprine HCl 10 MG Tablet 1 tab(s) Orally three times a day as needed , Taking Vitamin D3 125 MCG (5000 UT) Tablet 1 tab(s) orally once a day , Taking Ondansetron HCl 4 MG Tablet 1 tablet Orally Three times a day , Taking Fluticasone Propionate 50 MCG/ACT Suspension INSTILL 1 SPRAY INTRANASALLY 2 TIMES DAILY DIRCETED , Taking Gabapentin 300 MG Capsule 1 capsule Orally Once a day , Taking CPAP SUPPLIES to be used at bedtime , Taking Tamsulosin HCl 0.4 MG Capsule 1 capsule Orally Once a day , Discontinued Meloxicam 15 MG Tablet 1 tab(s) orally once a day , Medication List reviewed and reconciled with the patient * Allergies: P enicillins. Objective: * Vitals: W t: 232, Temp: 98.0, BP: 124/74, HR: 96, Nurse: rama, Ht: 73.50, BMI:30.19. * Examination: E NT/Respiratory: General Appearance: N AD. E yes: P ERRLA, sclera clear. O ral cavity : e rythema without exudate on pharynx. N yaakov : n o cervical lymphadenopathy. H eart : R RR, normal S1 S2. L ungs: c lear to auscultation bilaterally.? Assessment: * Assessment: 1. Aidan bauman URI - J06.9 (Primary) Plan: * Treatment: Value Reference Range w bc 6.8% 3.5 - 10 * l ym 18.4% 15 - 50 * m id 4.3% 2 - 15 * g ran 77.3% 35 - 80 * r bc 4.83 3.5 - 5.5 * h gb 14.6 11.5 - 16.5 * h ct 43.5 35 - 55 * m cv 89.9 75 - 100 * m ch 30.3 25 - 35 * m chc 33.7 31 - 38 * p lat 103 100 - 400 * Judy Wu 08/29/2025 11:36: 46 AM EST > Provider reviewed results while patient in office. * Procedure Codes: G 2211 Complex e/[place], [address] CAPILLARY BLOOD DRAW, 65824 CBC WITH AUTO DIFF, G8783 BP SCR PRFRM RCMDD DEFIND SCR INTVL, G8752 MOST RECENT SYSTOLIC BP < 140MM HG, G8754 MOST RECENT DIASTOLIC BP < 90MM HG, 3074F SYST BP LT 130 MM HG, 3078F DIAST BP < 80 MM HG * Follow Up: p rn * Images: Billing Information: * Visit Code: 67621 Office Visit, Est Pt., Level 3. * Procedure Codes: G2211 Complex e/[place]. [address] CAPILLARY BLOOD DRAW. 45055 CBC WITH AUTO DIFF. G8783 BP SCR PRFRM RCMDD DEFIND SCR INTVL. G8752 MOST RECENT SYSTOLIC BP < 140MM HG. G8754 MOST RECENT DIASTOLIC BP < 90MM HG. 3074F SYST BP LT 130 MM HG. 3078F DIAST BP < 80 MM HG. * Electronic signature of Lisha Engel MD on 09/12/2025 at 02:46 PM EST Sign off status: Pending * Provider: Jose Engel M.D. Date: 10/30/2024 Generated for Pat jauregui/Lauren/eTransmitting on: 11/13/2024 02:46 PM EST History and Physical Notes * HPI (History of Present Illness) Category Sub-Category Detail Notes Category Not es ENT/respiratory Fever nasal congestion Pt complains of nasa l congestion for 5 days. Associated with sore throat and small cough body aches Examination Category Sub-Category Detail Notes Category Not es ENT/Respiratory Oral cavity : erythema without exudate on pharynx Neck : no cervical lymphade nopathy Heart : RRR, normal S1 S2 Lungs: clear to auscultatio n bilaterally General Appearance: NAD Eyes: PERRLA, sclera clear
--- OUTSIDE RECORDS SUMMARY | 2025-09-11 10:45 | XMS_ITS ---
Author Organization [facility] Address [address] [facility] [address] [place] [id number] Care Team Providers Care Cvt Tech Name Role Phone Varna Cristopher Primary Care Provider Jeffrey Becker [phone] Allergies Allergen (clinical drug ingredient) Drug/Non Drug Allergy documented on EMR Reaction Allergy Type Onset Date Status Substance with penicillin structure and antibacterial mechanism of action (substance) Penicillins Unknown Drug Allergy Active Results Component Value Reference Range Notes CBC Fingerstick (in house) ( Not yet reviewed by provider) Interpretation: Performing Lab: Notes/Report: wbc 8.6 3.5 - 10 lym 19.8 15 - 50 mid 5.4 2 - 15 gran 74.8 35 - 80 rbc 5.11 3.5 - 5.5 hgb 15.5 11.5 - 16.5 hct 45.2 35 - 55 mcv 88.4 75 - 100 mch 30.4 25 - 35 mchc 34.3 31 - 38 plat 160 100 - 400 REASON FOR VISIT still not feeling well Medications Medication SIG (Take, Route, Frequency, Duration) Notes Start Date End Date Status Vitamin D3 125 MCG (5000 UT) 1 tab(s) orally once a day 05/06/2016 Active Ondansetron HCl 4 MG 1 tablet Orally Thr ee times a day 10/18/2024 Active CareTouch CPAP & BIPAP Hose DIRECTED G47.30 08/11/2008 Active Cyclobenzaprine HCl 10 MG 1 tab(s) Orall y three times a day as needed 08/12/2024 Active Fish Oil 1000 MG 1 cap(s) orally once daily Active Aspirin 81 MG 1 TAB(S) ORALLY ONCE A DAY; Duration: 30 DAY(S) Active CoQ10 100 MG 1 cap(s) orally once a day Active Probiotic Formula 1-250 BILLION-MG 1 cap(s) orally once a day Active Multiple Vitamin - 1 cap(s) orally twic e a day; Duration: 30 day(s) Active Garlic 1 TAB(S) PO TWICE A DAY Active Tamsulosin HCl 0.4 MG 1 capsule Orally O nce a day; Duration: 30 days Active CPAP SUPPLIES to be used at bedtime 09/20/2019 Active Fluticasone Propionate 50 MCG/ACT INSTILL 1 SPRAY INTRANASALLY 2 TIMES DAILY DIRCETED; Duration: 30 Active Gabapentin 300 MG 1 capsule Orally Onc e a day; Duration: 90 days 05/25/2025 Active Problems Problem Type SNOMED Code ICD Code Onset Dates Problem Status W/U Status Risk Notes Problem 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) Active confirmed Problem Chronic rhinitis (36904262) Rhinitis, unspecified type (J31.0) Active confirmed Vital Signs Blood pressure systolic 126 mm Hg 09/11/20 25 Blood pressure diastolic 70 mm Hg 025 Heart Rate 89 /min 09/11/2025 Height 73.50 in 09/11/2025 Weight 231 lbs 09/11/2025 BMI 30.06 kg/m2 09/11/2025 Encounters Encounter Location Date Provider Diagnosis [facility] [address] [facility] [address] [place] [address], [place] [id number] 09/11/2025 Jeffrey Becker Other post infection and related fatigue syndromes G93.39 and Rhinitis, unspecified type J31.0 Assessments Encounter Date Diagnosis (ICD Code) Assessment Notes Treatment Notes Treatment Clinical Notes Section Notes 09/11/2025 Other post infection and related fatigue syndromes (ICD-10 - G93.39) 09/11/2025 Rhinitis, unspecified type (ICD-10 - J31.0) Plan Of Treatment Pending Test Test Name Order Date CT Scan : Sinuses, without contrast 08/22 CXR 09/11/2025 CBC Fingerstick (in house) 09/11/2025 Next Appt Details Follow Up: 1 Week, Reason: Provider Name:Jeffrey Jon Coop er, 09/18/2025 01:30:00 PM, [address], [address], [place], [phone], Progress Notes * Matthew MCCRACKENDOB:1955 (70 yo M)Acc No.[id number]:09/11/2025 Progress Notes Patient: Matthew LANAD Provider: Jeffrey Becker M.D. :1955 A ge:70 Y S ex:Male Date:09/11/2025 Address:[address] [place] [address] [place] , [place], [id number] Pcp:Cristopher Engel Subjective: * Chief Complaints: * 1 . Still not feeling well. * HPI: E NT/respiratory: Pt states was here 08/29 and got meds, and he states he is still not feeling good. Son was ill while visiting. He has gotten well. 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 2007 CT of sinuses noted, negative. 70 year old male presents with c/o nasal congestion s neezing, off and on. c/o Chest Pain. c/o Short of Breath. c/o dizziness. Denies : sore throat. D enies : cough. D enies : Fever.?Denies : ear pain. D enies : post nasal drainage. D enies : facial pain/pressure. D enies : headache. D enies : chest congestion. D enies : body aches. * ROS: C ONSTITUTIONAL: Positive for A nother physician seen since last visit? no , Change in medication since last visit? no , Are you taking antibiotics?no , Are you taking steroids?no . D ERMATOLOGY: no R kelsi. n o [...] 04/22/2012, Dental Surgery 2013, Upper Endoscopy - [facility] 09/2017, Root Canal - Infection Removed 10/2018, [facility]onscopy- [facility] 04/10/2020, Cholecystectomy 06/2021. * Family History: F [...] capsule Orally Once a day , Discontinued Zithromax Z-Dustin 250 MG Tablet as directed Orally daily , Medication List reviewed and reconciled with the patient * Allergies: P enicillins. Objective: * Vitals: W t: 231, Temp: 98.4, BP: 126/70, HR: 89, Nurse: pe, Ht: 73.50, BMI:30.06. * Examination: G eneral Examination: General Appearance: N AD. H EENT: s clera and conjunctiva clear, PERRLA, TM's normal, translucent, nares patent. O ral cavity: n o lesions, mucosa moist and WNL, no erythema. N yaakov: s upple, no lymphadenopathy. C hest: n ormal shape and expansion. H eart: R SR, S4 present. L ungs: c lear to auscultation, no wheezes or rales. N eurologic Exam: I ntact, gait normal. S kin: n ormal, no rash.?Peripheral pulses: n ormal . E xtremities: n o leg edema. Assessment: * Assessment: 1. O ther post infection and related fatigue syndromes - G93.39 (Primary) 2 .?Rhinitis, unspecified type - J31.0 Plan: * Treatment: ?Imaging: CXR* Aniyah Patel 09/11/2025 05 :11:06 PM EST > order printed and given to pt * Labs: * L ab: CBC Fingerstick (in house) (Collection Date & Time - 09/11/2025) Value Reference Range w bc 8.6 3.5 - 10 * l ym 19.8 15 - 50 * m id 5.4 2 - 15 * g ran 74.8 35 - 80 * r bc 5.11 3.5 - 5.5 * h gb 15.5 11.5 - 16.5 * h ct 45.2 35 - 55 * m cv 88.4 75 - 100 * m ch 30.4 25 - 35 * m chc 34.3 31 - 38 * p lat 160 100 - 400 * Matilde Walsh 09/11/2025 04:06:17 PM EST > Provider reviewed results while patient in office. * Procedure Codes: 3 6416 CAPILLARY BLOOD DRAW, 26600 CBC WITH AUTO DIFF * Follow Up: 1 Week * Images: Billing Information: * Visit Code: 81688 Office Visit, Est Pt., Level 4. * Procedure Codes: 83847 CAPILLARY BLOOD DRAW. 14372 CBC WITH AUTO DIFF. * Electronic signature of Jeffrey Becker MD on 09/12/2025 at 02:45 PM EST Sign off status: Pending * Provider: Jeffrey Becker M.D. Date: 11/12/2024 Generated for Pat jauregui/Lauren/Shereenitting on: 11/13/2024 02:45 PM EST History and Physical Notes * HPI (History of Present Illness) Category Sub-Category Detail Notes Category Not es ENT/respiratory sore throat facial pain/pressure ear pain Short of Breath Chest Pain cough Fever post nasal drainage headache chest congestion nasal congestion sneezing, off and on dizziness body aches Examination Category Sub-Category Detail Notes Category Not es General Examination HEENT: sclera and c onjunctiva clear, PERRLA, TM's normal, translucent, nares patent Heart: RSR, S4 present Lungs: clear to auscultatio n, no wheezes or rales Extremities: no leg edema General Appearance: NAD Skin: normal, no rash Neurologic Exam: Intact, gait normal Neck: supple, no lymphaden opathy Oral cavity: no lesions, mucosa m oist and WNL, no erythema Peripheral pulses: normal Chest: normal shape and exp ansion
--- OUTSIDE RECORDS SUMMARY | 2025-09-12 14:46 | XMS_ITS | Patient Health Record ---
[facility] [address] [place] [id number] Care Team Providers Care Alarm Signaler Name Role Phone Cristopher Engel Primary Care Provider Jeffrey Becker [phone] Allergies Allergen (clinical drug ingredient) Drug/Non Drug [...] 100 - 400 CBC Fingerstick (in house) ( Not yet [...] - 38 plat 160 100 - 400 CBC Fingerstick (in house) Reviewed date:08/30/2025 03:36:12 [...] - 38 plat 103 100 - 400 Medications Medication SIG (Take, Route, Frequency, Duration) [...] times a day as needed 08/12/2024 Active Aspirin 81 MG 1 TAB(S) ORALLY ONCE A DAY; Duration: 30 DAY(S) Active Fish Oil 1000 MG 1 cap(s) orally once daily Active CoQ10 100 MG 1 cap(s) orally once a day Active Tamsulosin HCl 0.4 MG 1 capsule Orally O nce a day; Duration: 30 days Active Probiotic Formula 1-250 BILLION-MG 1 cap(s) orally once a day Active CPAP SUPPLIES to be used at bedtime 09/20/2019 Active Multiple Vitamin - 1 cap(s) orally twic e a day; Duration: 30 day(s) Active Fluticasone Propionate 50 MCG/ACT INSTILL 1 SPRAY INTRANASALLY 2 TIMES DAILY DIRCETED; Duration: 30 Active Garlic 1 TAB(S) PO TWICE A DAY Active Gabapentin 300 MG 1 capsule Orally Onc e a day; Duration: 90 days 05/25/2025 Active Immunizations Vaccine Route Administration Date Status Comme nts Shingrix Unknown 09/30/2022 Administered Prevnar (PCV20) IM Intramuscular 09/02/2022 Administered PNEUMOVAX 23 VACCINE IM Intramuscular 08/09/2021 Administe red Fluzone High Dose (65yr and older) IM Intramuscular 07/25/2022 Administered Fluzone High Dose (65yr and older) Unknown 07/02/2023 Administered COVID 19 Moderna Unknown 12/05/2020 Administered COVID 19 Moderna Unknown 01/02/2021 Administered COVID 19 Moderna Unknown 08/11/2021 Administered Problems Problem Type SNOMED Code ICD Code Onset Dates Problem Status W/U Status Risk Notes Problem Sinusitis (29645305) Sinusitis (J32.9) Active confirmed Problem Vitamin D deficiency (60884701) Vitamin D deficiency (E55.9) Active confirmed Problem Otitis externa (1201003) Otitis externa (H60.90) Active confirmed Problem Rosacea (184383279) Rosacea (L71.9) Active confirmed Problem Disorder of lumbar disc (583246879) Lumbar disc disease (M51.9) Active confirmed Problem Sciatica (93008810) Lumbago with sciatica, right side (M54.41) Active confirmed Problem Sciatica (83999406) Lumbago with sciatica, left side (M54.42) Active confirmed Problem Constipation (93452750) Constipation, unspecified constipation type (K59.00) Active confirmed Problem Lower urinary tract symptoms due to benign prostatic hypertrophy (46356660951236) Benign non-nodular prostatic hyperplasia with lower urinary tract symptoms (N40.1) Active confirmed Problem Erectile dysfunction (disorder) (999970899) Erectile dysfunction, unspecified erectile dysfunction type (N52.9) Active confirmed Problem Left flank pain (345812689) Left flank pain (R10.9) Active confirmed Problem Sleep apnea (22135488) Sleep apnea, unspecified type (G47.30) Active confirmed Problem Herpes simplex (61170268) History of herpes simplex infection (Z86.19) Active confirmed Problem Vitamin D deficiency (50140200) Low vitamin D level (E55.9) Active confirmed Problem Prolapsed lumbar intervertebral disc (405381792) Lumbar disc herniation (M51.26) Active confirmed Problem Sleep apnea (84024295) Unspecified sleep apnea (G47.30) Active confirmed Problem Chronic rhinitis (30352107) Rhinitis, unspecified type (J31.0) Active confirmed Problem Age-related osteoporosis (667726934) Osteoporosis without current pathological fracture, unspecified osteoporosis type (M81.0) Active confirmed Problem Genital herpes simplex (54140752) Genital herpes in men (A60.02) Active confirmed Problem Allergic rhinitis (27806553) Chronic allergic rhinitis, unspecified seasonality, unspecified trigger (J30.9) Active confirmed Problem Spinal stenosis of lumbar region (97380157) Spinal stenosis of lumbar region without neurogenic claudication (M48.061) Active confirmed Problem 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) Active confirmed Vital Signs Heart Rate 89 /min 09/11/2025 Blood pressure diastolic 70 mm Hg 09/11/2025 Height 73.50 in 09/11/2025 Blood pressure systolic 126 mm Hg 09/11/2025 Weight 231 lbs 09/11/2025 BMI 30.06 kg/m2 09/11/2025 Encounters Encounter Location Date Provider Diagnosis [facility] [address] [facility] [address], [place] [id number] 10/05/2024 Cristopher Marlboro Lumbago with sciatic a, left side M54.42 ; Lumbago with sciatica, right side M54.41 and Lumbar disc disease M51.9 [facility] [address], [place] [id number] 10/18/2024 Cristopher Marlboro Acute gastroenteriti s K52.9 [facility] [address] [place], [place] [id number] 08/29/2025 Cristopher Marlboro Acute URI J06.9 [facility] [address] [facility] [address] [place], [place] [id number] 09/11/2025 Jeffrey Becker Other post infection and related fatigue syndromes G93.39 and Rhinitis, unspecified type J31.0 [facility] [address] [facility] [address] [place], [place] [id number] 10/14/2024 Cristopher Marlboro Lumbago with sciatic a, left side M54.42 ; Lumbago with sciatica, right side M54.41 ; Lumbar disc disease M51.9 ; Lumbar disc herniation M51.26 and Spinal stenosis of lumbar region without neurogenic claudication M48.061 [facility] [address] [place], [place] [id number] 10/31/2024 Cristopher Marlboro Lumbago with sciatic a, left side M54.42 [facility] [address] [place], [place] [id number] 01/16/2025 Cristopher Marlboro Lumbago with sciatic a, left side M54.42 [facility] [address] [place], [place] [id number] 02/14/2025 Cristopher Marlboro [facility] [address] [place] [id number] 03/30/2025 Cristopher Marlboro Lumbago with sciatic a, left side M54.42 [facility] [address] [place], [place] [id number] 05/04/2025 Cristopher Marlboro [facility] [address] [place] [id number] 05/24/2025 Cristopher Marlboro Lumbago with sciatic a, left side M54.42 [facility] [address] [place], [place] [id number] 06/26/2025 Cristopher Marlboro Unspecified sleep ap wilfred G47.30 Assessments Encounter Date Diagnosis (ICD Code) Assessment Notes Treatment Notes Treatment Clinical Notes Section Notes 10/18/2024 Acute gastroenteritis (ICD-10 - K52.9) 10/05/2024 Lumbago with sciatica, right side (ICD-10 - M54.41) 10/05/2024 Lumbago with sciatica, left side (ICD-10 - M54.42) 10/31/2024 Lumbago with sciatica, left side (ICD-10 - M54.42) 01/16/2025 Lumbago with sciatica, left side (ICD-10 - M54.42) 03/30/2025 Lumbago with sciatica, left side (ICD-10 - M54.42) 05/24/2025 Lumbago with sciatica, left side (ICD-10 - M54.42) 06/26/2025 Unspecified sleep apnea (ICD-10 - G47.30) 08/29/2025 Acute URI (ICD-10 - J06.9) 09/11/2025 Rhinitis, unspecified type (ICD-10 - J31.0) 09/11/2025 Other post infection and related fatigue syndromes (ICD-10 - G93.39) 10/14/2024 Lumbago with sciatica, right side (ICD-10 - M54.41) 10/14/2024 Lumbago with sciatica, left side (ICD-10 - M54.42) 10/05/2024 Lumbar disc disease (ICD-10 - M51.9) 10/14/2024 Lumbar disc disease (ICD-10 - M51.9) 10/14/2024 Lumbar disc herniation (ICD-10 - M51.26) 10/14/2024 Spinal stenosis of lumbar region without neurogenic claudication (ICD-10 - M48.061) 10/05/2024 Other L-spine xray report reviewed in office today Plan Of Treatment Pending Test Test Name Order Date CT Scan : Sinuses, without contrast 08/22 CXR 09/11/2025 CBC Fingerstick (in house) 09/11/2025 Next Appt Details Provider Name:Jeffrey Gorman er, 09/18/2025 01:30:00 PM, [address], [place], [place], [id number], Insurance Providers Payer Name Payer Address Payer Phone Subscriber Number Group Number Insured Name Patient Relationship to Insured Coverage Start Date Coverage End Date MEDICARE PART B [address] [address] [place] [id number] Matthew Walker Self - patient is the insured [facility] [address] [place] [id number] Matthew Walker Self - patient is the insured Medications Administered Medication Instructions Date of Administration Dosage Notes Dexamethasone 09/23/2018 2 mL Medical (General) History Medical History History ICD Code Allergic Rhinitis 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
--- NOTE | 2025-09-12 14:48 | XR_ITS ---
FINAL REPORT CLINICAL HISTORY: POST INFECTION AND RELATED FATIGUE COMPARISON: None FINDINGS: PA and lateral views of the chest were obtained. No acute pulmonary density is evident. There is no evidence of effusion or other pleural disease. The mediastinum has a normal appearance. The cardiac silhouette is unremarkable. IMPRESSION: Unremarkable chest exam. Reviewed, Interpreted and Dictated by Alvin Calle MD Transcribed by Becca Butt Authenticated and [facility]
== END 2025-09-12 23:59 ==
LOC: RAD 14:43
PROVIDERS: PCP Family Medicine; Visit Provider Family Medicine
DX: G93.39 Other post infection and related fatigue syndromes (principal)
CPT/HCPCS: 71046